=== PATIENT | female | born 1950 | race Caucasian/White ===

== ENCOUNTER 2016-10-29 08:00 | Outpatient (CLI) | payer MEDICARE | END 2016-10-29 23:59 | DX: E78.2 Mixed hyperlipidemia (principal); Z79.899 Other long term (current) drug therapy ==

== ENCOUNTER 2017-02-25 12:03 | Outpatient (CLI) | payer MEDICARE ==
--- NOTE | 2017-02-25 12:57 | XRAY Report ---
CHEST PA AND LATERAL: 02/25/2017 CLINICAL HISTORY: The patient had a recent fall injuring her right rib cage. FINDINGS: The bony thorax demonstrates mild anterior spurring in the thoracic spine. The ribs on pat ient's PA chest x-ray appear normal as do the clavicles. The heart and great vessels are normal. The mediastinum is not widened. The pulmonary parenchyma appe ars normal. IMPRESSION: NORMAL EXAMINATION. JOB #: [id number] EXT JOB #:[id number]
== END 2017-02-25 12:04 | disposition home or self-care (01) ==
LOC: DI 12:03
PROVIDERS: ATTEND Physician Assistant Medical
DX: R07.81 Pleurodynia (principal)
CPT/HCPCS: 71020

== ENCOUNTER 2017-06-03 15:30 | Outpatient (CLI) | payer MEDICARE ==
[2017-06-03 13:31] LABS: BASOPHILS # (AUTO) 0.1 10^3/uL (0.0-0.1); BASOPHILS % (AUTO) 0.9 %; EOSINOPHILS # (AUTO) 0.2 10^3/uL (0.0-0.7); HCT - HEMATOCRIT 38.1 % (37.0-47.0); HGB - HEMOGLOBIN 12.9 g/dL (12.0-16.0); LYMPHOCYTES # (AUTO) 1.7 10^3/uL (1.5-3.5); LYMPHOCYTES % (AUTO) 28.2 %; MEAN CORPUSCULAR HEMOGLOBIN 29.5 pg (27.0-31.0); MEAN CORPUSCULAR VOLUME 86.9 fL (81.0-99.0); MEAN PLATELET VOLUME 7.7 fL (7.9-10.8); MONOCYTES # (AUTO) 0.4 10^3/uL (0.0-1.0); MONOCYTES % (AUTO) 6.9 %; NEUTROPHILS # (AUTO) 3.6 10^3/uL (1.5-6.6); RED BLOOD COUNT 4.38 10^6/uL (4.20-5.40); RED CELL DISTRIBUTION WIDTH 13.9 % (12.0-15.0); UNCORRECTED WHITE BLOOD COUNT 5.9 x10^3/uL; WHITE BLOOD COUNT 5.9 x10^3/uL (4.8-10.8)
[2017-06-03 13:53] LABS: ALBUMIN/GLOBULIN RATIO 1.2 (1.0-2.2); BILIRUBIN,TOTAL 0.7 mg/dL (0.2-1.0); BUN - BLOOD UREA NITROGEN 12 mg/dL (6-20); CARBON DIOXIDE - CO2 27 mmol/L (21-32); CHLORIDE 97 mmol/L (101-111); CHOL/HDL RATIO 3.1 (<4.4); CHOLESTEROL 178 mg/dL; CREATININE 0.9 mg/dL (0.4-1.0); GFR - MDRD 62 (>89); GLUCOSE 91 mg/dL (70-100); HDL CHOLESTEROL 58 mg/dL; LDL/HDL RATIO 1.7 (<4.4); POTASSIUM 3.2 mmol/L (3.5-5.0); SODIUM 134 mmol/L (135-145); TOTAL PROTEIN 7.5 g/dL (6.7-8.2); TRIGLYCERIDES 100 mg/dL; VLDL CHOLESTEROL 20 mg/dL
== END 2017-06-03 15:31 | disposition home or self-care (01) ==
LOC: LAB.R 15:30
PROVIDERS: ATTEND Internal Medicine
DX: E78.5 Hyperlipidemia, unspecified (principal); Z79.899 Other long term (current) drug therapy; K21.9 Gastro-esophageal reflux disease without esophagitis; I10 Essential (primary) hypertension; E03.9 Hypothyroidism, unspecified
CPT/HCPCS: 80053; 80061; 84443; 85025

== ENCOUNTER 2017-08-25 11:43 | Outpatient (CLI) | payer MEDICARE ==
--- NOTE | 2017-08-25 13:32 | XRAY Report ---
EXAM; THREE VIEW RIGHT FOOT: 08/25/2017 CLINICAL INDICATION: Pain. FINDINGS: AP, lateral, and oblique views of the right foot demonstrate mild osteoarthritis of the interphalangeal joints and tarsometatarsal joints. Plantar calcaneal spurring is present, and there is calcification of the plantar fascia. There is no evidence of acute fracture. No radiopaque foreign body is seen in the soft tissues. IMPRESSION: DEGENERATIVE CHANGES. MD NAVID Ribeiro/PERLA TD: 08/25/2017 13:30 MTDD
== END 2017-08-25 11:44 | disposition home or self-care (01) ==
LOC: DI 11:43
PROVIDERS: ATTEND Physician Assistant Medical
DX: M79.671 Pain in right foot (principal); M19.071 Primary osteoarthritis, right ankle and foot; M77.31 Calcaneal spur, right foot; M25.871 Other specified joint disorders, right ankle and foot

== ENCOUNTER 2018-04-29 08:30 | Outpatient (CLI) | payer MEDICARE ==
[2018-04-29 13:36] LABS: BASOPHILS # (AUTO) 0.1 10^3/uL (0.0-0.1); BASOPHILS % (AUTO) 1.2 %; EOSINOPHILS # (AUTO) 0.3 10^3/uL (0.0-0.7); HGB - HEMOGLOBIN 13.6 g/dL (12.0-16.0); LYMPHOCYTES # (AUTO) 1.3 10^3/uL (1.5-3.5); LYMPHOCYTES % (AUTO) 25.3 %; MEAN CORPUSCULAR VOLUME 88.3 fL (81.0-99.0); MEAN PLATELET VOLUME 7.8 fL (7.9-10.8); MONOCYTES # (AUTO) 0.3 10^3/uL (0.0-1.0); MONOCYTES % (AUTO) 6.6 %; NEUTROPHILS # (AUTO) 3.2 10^3/uL (1.5-6.6); NEUTROPHILS % (AUTO) 60.9 %; PLT - PLATELET COUNT 387 10^3/uL (130-450); RED BLOOD COUNT 4.54 10^6/uL (4.20-5.40); RED CELL DISTRIBUTION WIDTH 13.5 % (12.0-15.0); WHITE BLOOD COUNT 5.2 x10^3/uL (4.8-10.8)
[2018-04-29 13:51] LABS: ALBUMIN 4.1 g/dL (3.2-5.5); ALBUMIN/GLOBULIN RATIO 1.2 (1.0-2.2); ALKALINE PHOSPHATASE 60 IU/L (42-121); ALT ALANINE AMINOTRANSFERASE 41 IU/L (10-60); AST ASPARTATE AMINOTRANSFERASE 32 IU/L (10-42); BILIRUBIN,TOTAL 1.1 mg/dL (0.2-1.0); BUN - BLOOD UREA NITROGEN 15 mg/dL (6-20); CALCIUM 9.3 mg/dL (8.5-10.3); CARBON DIOXIDE - CO2 27 mmol/L (21-32); CHLORIDE 99 mmol/L (101-111); CHOL/HDL RATIO 2.9 (<4.4); CHOLESTEROL 206 mg/dL; CREATININE 0.8 mg/dL (0.4-1.0); GFR - MDRD 71 (>89); GLUCOSE 96 mg/dL (70-100); HDL CHOLESTEROL 71 mg/dL; LDL CHOLESTEROL,CALCULATED 111 mg/dL; LDL/HDL RATIO 1.6 (<4.4); SODIUM 135 mmol/L (135-145); TOTAL PROTEIN 7.6 g/dL (6.7-8.2); VLDL CHOLESTEROL 24 mg/dL
[2018-04-29 13:59] LABS: CRP - C-REACTIVE PROTEIN < 1.0 mg/dL (0-1.0)
[2018-04-29 14:02] LABS: THYROID STIMULATING HORMONE 2.05 uIU/mL (0.34-5.60)
== END 2018-04-29 08:31 | disposition home or self-care (01) ==
LOC: LAB.R 08:30
PROVIDERS: ATTEND Internal Medicine
DX: R41.3 Other amnesia (principal); Z79.899 Other long term (current) drug therapy; E78.5 Hyperlipidemia, unspecified; I10 Essential (primary) hypertension; E03.9 Hypothyroidism, unspecified
CPT/HCPCS: 36415; 80053; 80061; 81599; 82607; 83721; 84443; 85025; 85651; 86140

== ENCOUNTER 2018-05-04 14:41 | Outpatient (CLI) | payer MEDICARE ==
--- NOTE | 2018-05-10 14:09 | MRI Report ---
Reason: MEMORY DEFICIT Procedure Date: 05/04/2018 Accession Number: [id number] / [id number] Procedure: MRI - Brain W/O CPT Code: FULL RESULT: EXAM: MRI BRAIN WITHOUT CONTRAST EXAM DATE: 05/04/2018 03:24 PM. CLINICAL HISTORY: 68-year-old female. MEMORY DEFICIT. COMPARISON: None. TECHNIQUE: Multiplanar, multisequence T1-weighted and fluid-sensitive MR sequences of the brain were performed. Sequences optimized for routine evaluation. Other: None. IV Contrast: None. FINDINGS: Brain Volume: Normal for age. Parenchyma/Dura: No mass, acute infarct or hemorrhage. Scattered T2/FLAIR hyperintense periventricular, deep, and subcortical white matter lesions within cerebral hemispheres bilaterally. No parenchymal foci of susceptibility artifact. Chronic lacunar infarcts right centrum semiovale ovale, midbrain. Ventricles/Cisterns: No hydrocephalus. No abnormal extra-axial fluid collection or hemorrhage. Orbits: Symmetric and unremarkable. Sella Turcica: The pituitary gland, cavernous sinuses, suprasellar cistern and optic chiasm are unremarkable. IAC: Symmetric and unremarkable. Vasculature: Normal signal flow void is seen in the major arterial structures at the skull base. Sinuses: No acute appearing sinus disease. Bones: No focal pathologic appearing marrow signal changes. Other: None. IMPRESSION: 1. No MRI evidence of acute intracranial abnormality. Specifically, no evidence of acute or subacute infarct, acute intracranial hemorrhage, mass, midline shift, or hydrocephalus. 2. Qualitatively normal brain volume for age. 3. Scattered T2/FLAIR hyperintense periventricular, deep, and subcortical white matter lesions within cerebral hemispheres bilaterally. While nonspecific, these are favored to represent sequela of chronic microangiopathy. 4. Chronic lacunar infarcts right centrum semiovale ovale, midbrain. RADIA
== END 2018-05-04 14:42 | disposition home or self-care (01) ==
LOC: DI 14:41
PROVIDERS: ATTEND Internal Medicine
DX: R41.3 Other amnesia (principal); G93.9 Disorder of brain, unspecified; Z86.73 Personal history of transient ischemic attack (TIA), and cerebral infarction without residual deficits
CPT/HCPCS: 70551

== ENCOUNTER 2018-05-10 14:30 | Outpatient (CLI) | payer MEDICARE ==
--- NOTE | 2018-05-10 16:49 | XRAY Report ---
Reason: HIP LEFT LOW BACK PAIN Procedure Date: 05/10/2018 Accession Number: [id number] / [id number] Procedure: XR - Hip w/Pelvis 2-3V LT CPT Code: FULL RESULT: EXAM: LEFT HIP AND PELVIS RADIOGRAPHY EXAM DATE: 05/10/2018 02:59 PM. HISTORY: HIP LEFT LOW BACK PAIN. COMPARISONS: None. TECHNIQUE: 1 view of the pelvis and 1 view of the left hip. FINDINGS: Bones: No fracture or bone lesion. Joints: The bilateral hip, pubis symphysis, and sacroiliac joints are anatomically aligned. Slight degenerative change of the sacroiliac joints right greater than left. Hip joints appear well-maintained. Soft Tissues: Unremarkable IMPRESSION: No acute findings pelvis and left hip radiography. Minor degenerative changes are present. RADIA
--- NOTE | 2018-05-10 19:38 | XRAY Report ---
Reason: Low back pain Procedure Date: 05/10/2018 Accession Number: [id number] / [id number] Procedure: XR - Lumbar Spine 2 View CPT Code: FULL RESULT: EXAM: LUMBOSACRAL SPINE RADIOGRAPHY EXAM DATE: 05/10/2018 02:59 PM. CLINICAL HISTORY: Low back pain. COMPARISONS: None. TECHNIQUE: 3 standing views. FINDINGS: Alignment: Grade 1 anterior listhesis L4 on L5 and L5 on S1 Bones: Mild height loss of L1. Disks: Advanced disk space narrowing T12-L1, L1-L2 and L5-S1 with lesser narrowing L2-L3, L3-L4 and L4-L5. Facets: Multilevel degenerative changes. Sacroiliac Joints: Unremarkable. Soft Tissues: Surgical clips right upper quadrant IMPRESSION: Multilevel degenerative change lumbar spine. Lumbar spinal stenosis is likely present but could be best assessed by MRI. RADIA
== END 2018-05-10 14:31 | disposition home or self-care (01) ==
LOC: DI 14:30
PROVIDERS: ATTEND Internal Medicine
DX: M47.898 Other spondylosis, sacral and sacrococcygeal region (principal); M51.36 Other intervertebral disc degeneration, lumbar region; M47.896 Other spondylosis, lumbar region
CPT/HCPCS: 72100

== ENCOUNTER 2019-04-04 14:32 | Outpatient (CLI) | payer MEDICARE ==
[2019-04-04 15:12] LABS: VALPROIC ACID (DEPAKOTE) 37.4 ug/mL
== END 2019-04-04 14:33 | disposition home or self-care (01) ==
LOC: LAB 14:32
PROVIDERS: ATTEND Psychiatry & Neurology Psychiatry
DX: F31.63 Bipolar disorder, current episode mixed, severe, without psychotic features (principal)
CPT/HCPCS: 36415; 80164

== ENCOUNTER 2019-04-24 13:39 | Outpatient (CLI) | payer MEDICARE ==
[2019-04-24 14:29] LABS: VALPROIC ACID (DEPAKOTE) 57.3 ug/mL
== END 2019-04-24 13:40 | disposition home or self-care (01) ==
LOC: LAB 13:39
PROVIDERS: ATTEND Psychiatry & Neurology Psychiatry
DX: F31.63 Bipolar disorder, current episode mixed, severe, without psychotic features (principal)
CPT/HCPCS: 36415; 80164

== ENCOUNTER 2019-05-01 11:08 | Outpatient (CLI) | payer MEDICARE ==
[2019-05-01 11:51] LABS: VALPROIC ACID (DEPAKOTE) 92.3 ug/mL
== END 2019-05-01 11:09 | disposition home or self-care (01) ==
LOC: LAB 11:08
PROVIDERS: ATTEND Psychiatry & Neurology Psychiatry
DX: F31.9 Bipolar disorder, unspecified (principal); Z79.899 Other long term (current) drug therapy
CPT/HCPCS: 36415; 80164

== ENCOUNTER 2019-05-18 13:03 | Outpatient (CLI) | payer MEDICARE ==
[2019-05-18 13:33] LABS: VALPROIC ACID (DEPAKOTE) 77.4 ug/mL
== END 2019-05-18 13:04 | disposition home or self-care (01) ==
LOC: LAB 13:03
PROVIDERS: ATTEND Psychiatry & Neurology Psychiatry
DX: F31.63 Bipolar disorder, current episode mixed, severe, without psychotic features (principal)
CPT/HCPCS: 36415; 80164

== ENCOUNTER 2019-05-21 11:39 | Observation (INO) | payer MEDICARE ==
[2019-05-21 12:48] LABS: BASOPHILS % (AUTO) 0.2 %; EOSINOPHILS # (AUTO) 0.1 10^3/uL (0.0-0.7); EOSINOPHILS % (AUTO) 0.9 %; HGB - HEMOGLOBIN 13.5 g/dL (12.0-16.0); LYMPHOCYTES # (AUTO) 0.7 10^3/uL (1.5-3.5); LYMPHOCYTES % (AUTO) 6.2 %; MEAN CORPUSCULAR HGB CONC 36.2 g/dL (32.0-36.0); MEAN CORPUSCULAR VOLUME 85.7 fL (81.0-99.0); MEAN PLATELET VOLUME 9.4 fL (7.9-10.8); MONOCYTES # (AUTO) 1.3 10^3/uL (0.0-1.0); NEUTROPHILS # (AUTO) 9.6 10^3/uL (1.5-6.6); NEUTROPHILS % (AUTO) 81.3 %; PLT - PLATELET COUNT 157 10^3/uL (130-450); RED BLOOD COUNT 4.35 10^6/uL (4.20-5.40); RED CELL DISTRIBUTION WIDTH 12.4 % (12.0-15.0); WHITE BLOOD COUNT 11.9 x10^3/uL (4.8-10.8)
--- NOTE | 2019-05-21 12:53 | ED Physician Documentation ---
History of Present Illness - Stated complaint Stated Complaint: WEAKNESS/MED CHGS - Chief complaint Chief Complaint: Neuro - History obtained from History obtained from: Patient - History of Present Illness Pain level max: 0 Pain level now: 0 - Additonal information Additional information: 69-year-old female presents to the emergency department stating she has felt dizzy and "foggy" for the past year or so. She states that today her sister came over and told her that "she looked terrible". Therefore she came to the emergency department. Has no numbness or tingling. No headache. No speech difficulties. She does state that her Depakote was recently changed. She does not know her other medications. She denies any trauma. Denies any other complaints. No nausea or vomiting. No abdominal pain. No diarrhea. Review of Systems Unable to obtain: AMS Constitutional: denies: Fever, Chills Respiratory: denies: Cough GI: denies: Nausea, Vomiting, Diarrhea Skin: denies: Rash Musculoskeletal: denies: Neck pain, Back pain Neurologic: denies: Focal weakness, Numbness, Difficulty speaking, Headache PD PAST MEDICAL HISTORY - Past Medical History Past Medical History: Yes Cardiovascular: Hypertension, High cholesterol - Present Medications Home Medications: Ambulatory Orders Medication Instructions Recorded Confirmed Amlodipine Besylate [Norvasc] 2.5 mg PO QPM 05/21/19 05/21/19 Divalproex Sodium [Divalproex 1,000 mg PO QPM 05/21/19 05/21/19 Sodium ER] Divalproex Sodium [Divalproex 500 mg PO DAILY 05/21/19 05/21/19 Sodium ER] Esomeprazole Magnesium [Nexium 20 mg PO QDAC 05/21/19 05/21/19 24Hr] Levothyroxine [Synthroid] 112 mcg PO QDAC 05/21/19 05/21/19 Lisinopril/Hydrochlorothiazide 1 tab PO DAILY 05/21/19 05/21/19 [Lisinopril-Hctz 20-12.5 mg Tab] Lovastatin 40 mg PO QPM 05/21/19 05/21/19 Multivitamin [Theragran] 1 tab PO QPM 05/21/19 05/21/19 Naproxen Sodium 220 mg PO QPM PRN 05/21/19 05/21/19 Potassium Chloride 20 meq PO QPM 05/21/19 05/21/19 diphenhydrAMINE HCl 25 mg PO BID PRN 05/21/19 05/21/19 [Diphenhydramine HCl] - Allergies Allergies/Adverse Reactions: Allergies Allergy/AdvReac Type Severity Reaction Status Date / Time No Known Drug Allergies Allergy Verified 05/21/19 11:52 - Living Situation Living Situation: reports: Alone Living Arrangement: reports: At home - Social History Does the pt have substance abuse?: No - Family History Family history: reports: Non contributory PD ED PE NORMAL - Vitals Vital signs reviewed: Yes - General General: No acute distress, Well developed/nourished, Other (alert, slow to respond. forgets questions when asked.) - HEENT HEENT: Atraumatic, PERRL, Moist mucous membranes, Pharynx benign - Neck Neck: Supple, no meningeal sign - Cardiac Cardiac: RRR, Strong equal pulses - Respiratory Respiratory: No respiratory distress, Clear bilaterally - Abdomen Abdomen: Soft, Non tender, Non distended - Back Back: No spinal TTP - Derm Derm: Warm and dry, No rash - Extremities Extremities: No edema - Neuro Neuro: Other (alert, pleasant) - Psych Psych: Normal mood, Normal affect Results - Vitals Vitals: Vital Signs - 24 hr 05/21/19 05/21/19 05/21/19 11:47 12:02 12:25 Temperature 36.5 C 36.7 C Heart Rate 76 69 64 Respiratory 18 16 16 Rate Blood Pressure 105/62 118/73 105/65 O2 Saturation 98 96 94 05/21/19 05/21/19 13:05 13:08 Temperature Heart Rate 68 61 Respiratory 16 14 Rate Blood Pressure 102/66 110/62 O2 Saturation 96 96 Oxygen O2 Source Room air - Labs Labs: Laboratory Tests 05/21/19 05/21/19 05/21/19 12:33 12:33 12:33 WBC 11.9 H RBC 4.35 Hgb 13.5 Hct 37.3 MCV 85.7 MCH 31.0 MCHC 36.2 H RDW 12.4 Plt Count 157 MPV 9.4 Neut # (Auto) 9.6 H Lymph # (Auto) 0.7 L Dunn # (Auto) 1.3 H Eos # (Auto) 0.1 Baso # (Auto) 0.0 Absolute Nucleated RBC 0.00 Nucleated RBC % 0.0 Sodium 121 L Potassium 3.6 Chloride 83 L Carbon Dioxide 28 Anion Gap 10.0 BUN 17 Creatinine 0.9 Estimated GFR (MDRD) 62 L Glucose 98 Calcium 8.6 Total Bilirubin 0.7 AST 99 H ALT 154 H Alkaline Phosphatase 42 Total Protein 6.1 L Albumin 3.3 Globulin 2.8 Albumin/Globulin Ratio 1.2 Lipase 24 TSH Last Dose Date 05/20/19 Last Dose Time 1800 Salicylates Acetaminophen Valproic Acid 123.0 Ethyl Alcohol 05/21/19 05/21/19 12:33 12:33 WBC RBC Hgb Hct MCV MCH MCHC RDW Plt Count MPV Neut # (Auto) Lymph # (Auto) Dunn # (Auto) Eos # (Auto) Baso # (Auto) Absolute Nucleated RBC Nucleated RBC % Sodium Potassium Chloride Carbon Dioxide Anion Gap BUN Creatinine Estimated GFR (MDRD) Glucose Calcium Total Bilirubin AST ALT Alkaline Phosphatase Total Protein Albumin Globulin Albumin/Globulin Ratio Lipase TSH 1.00 Last Dose Date Last Dose Time Salicylates < 6.0 Acetaminophen < 10 L Valproic Acid Ethyl Alcohol < 5.0 - Rads (name of study) head CT Radiology: Prelim report reviewed, EMP read contemporaneously, See rad report (Negative for an acute or focal intracranial abnormality. ) PD MEDICAL DECISION MAKING - ED course Complexity details: reviewed results, re-evaluated patient, considered differential, d/w patient, d/w family, d/w senior erp consultant ED course: 69-year-old female presents to the emergency department with altered mental status. Unclear how long this is been going on. Family states that she could not even feed herself today. Her sodium is found to be significantly lower than her usual baseline. Her usual is around 1 34-1 35. Will start on normal saline slowly to gradually correct her hyponatremia. When the saline was initiated, she did begin to improve. No acute findings on head CT. Discussed the case with Dr. Mclaughlin, hospitalist who accepts This document was made in part using voice recognition software. While efforts are made to proofread this document, sound alike and grammatical errors may occ ur. Departure - Departure Disposition: ED Place in Observation Clinical Impression: Hyponatremia Altered mental status Qualifiers: Altered mental status type: unspecified Qualified Code(s): R41.82 - Altered mental status, unspecified Condition: Stable Discharge Date/Time: 05/21/19 15:10
[2019-05-21 13:03] LABS: ALBUMIN 3.3 g/dL (3.2-5.5); ALBUMIN/GLOBULIN RATIO 1.2 (1.0-2.2); BILIRUBIN,TOTAL 0.7 mg/dL (0.2-1.0); CALCIUM 8.6 mg/dL (8.5-10.3); CREATININE 0.9 mg/dL (0.4-1.0); TOTAL PROTEIN 6.1 g/dL (6.7-8.2)
[2019-05-21] MEDS ORDERED: SODIUM CHLORIDE 0.9% 1,000 ML IV ONE (13:18)
[2019-05-21 13:52] LABS: ACETAMINOPHEN < 10 ug/mL (10-30); SALICYLATE < 6.0 mg/dL
[2019-05-21] MEDS ORDERED: SODIUM CHLORIDE FLUSH 0.9% 10 ML SYRINGE IVP PRN (14:26)
[2019-05-21] MEDS ORDERED: ONDANSETRON 4 MG/2 ML VIAL IVP PRN (14:26)
[2019-05-21] MEDS ORDERED: ACETAMINOPHEN 325 MG TABLET PO PRN (14:26)
--- NOTE | 2019-05-21 14:29 | CT Report ---
Reason: aloc Procedure Date: 05/21/2019 Accession Number: [id number] / [id number] Procedure: CT - HEAD WO CPT Code: FULL RESULT: EXAM: CT HEAD EXAM DATE: 05/21/2019 01:53 PM. CLINICAL HISTORY: Altered level of consciousness. COMPARISON: BRAIN W/O 05/04/2018 2:57 PM. TECHNIQUE: Multiaxial CT images were obtained from the foramen magnum to the vertex. Reformats: Sagittal and coronal. IV contrast: None. In accordance with CT protocol optimization, one or more of the following dose reduction techniques were utilized for this exam: automated exposure control, adjustment of mA and/or KV based on patient size, or use of iterative reconstructive technique. FINDINGS: Parenchyma: No intraparenchymal hemorrhage. No evidence of mass, midline shift, or CT findings of infarction. Huerta-white differentiation is distinct. Extraaxial Spaces: Normal for age. No subdural or epidural collections identified. Ventricles: Normal in size and position. Sinuses and Orbits: Imaged paranasal sinuses, orbits, and mastoids show no significant abnormality. Bones: No evidence of fracture or calvarial defect. Other: None. IMPRESSION: Negative for an acute or focal intracranial abnormality. RADIA
--- NOTE | 2019-05-21 14:58 | HISTORY & PHYSICAL EXAMINATION ---
Chief Complaint - Chief Complaint Chief Complaint: dizziness and confused History of Present Illness - History of Present Illness HPI Comment/Other: Ms. Allen is a 69-year-old female with a PMH significant for mood disorder, bipolar, HTN, HLD, GERD, hypothyroidism who presents to the emergency department complain of dizziness, lightheaded, and some confused. Pt can only provide limited information, and her family provide some her history. Pt report her PCP changed her Depakote dosage on this week . Since that, she felt more dizziness. Pt's family report pt took Depakote for her psychological disorder such as bipolar and mood disorder. Family reports decreased energy, appetite and intermittent confusion for the past 1-2 weeks. pt denies headache, vision change, chest pain, fever, chill, shortness of breath, abdominal pain, nausea, vomiting, diarrhea, dysuria, hematuria. Pt also denies focal neurological deficiency. CT of head is unremarkable. UA analysis is pending now. Lab test reveals significant low sodium at 121, slight elevated liver enzyme AST and ALT, and slight elevated WBC 11.9. pt is admitted in observation unit for further evaluation and treatment. History - Family & Social History Family History: Mother: CVA/TIA, Father: CAD Family History Comment/Other: pt's family report pt's father from CAD and her mother from CVA. pt is living at [facility]. Social History Notes: pt's family report pt has never been cigarette smoking, alcoholic or drug issue. - POLST POLST Status: DNR Meds/Allgy - Home Medications Home Medications: Ambulatory Orders Medication Instructions Recorded Confirmed Amlodipine Besylate [Norvasc] 2.5 mg PO QPM 05/21/19 05/21/19 Divalproex Sodium [Divalproex 1,000 mg PO QPM 05/21/19 05/21/19 Sodium ER] Divalproex Sodium [Divalproex 500 mg PO DAILY 05/21/19 05/21/19 Sodium ER] Esomeprazole Magnesium [Nexium 20 mg PO QDAC 05/21/19 05/21/19 24Hr] Levothyroxine [Synthroid] 112 mcg PO QDAC 05/21/19 05/21/19 Lisinopril/Hydrochlorothiazide 1 tab PO DAILY 05/21/19 05/21/19 [Lisinopril-Hctz 20-12.5 mg Tab] Lovastatin 40 mg PO QPM 05/21/19 05/21/19 Multivitamin [Theragran] 1 tab PO QPM 05/21/19 05/21/19 Naproxen Sodium 220 mg PO QPM PRN 05/21/19 05/21/19 Potassium Chloride 20 meq PO QPM 05/21/19 05/21/19 diphenhydrAMINE HCl 25 mg PO BID PRN 05/21/19 05/21/19 [Diphenhydramine HCl] - Allergies Allergies/Adverse Reactions: Allergies Allergy/AdvReac Type Severity Reaction Status Date / Time No Known Drug Allergies Allergy Verified 05/21/19 11:52 Review of Systems - Constitutional Constitutional: reports: Fatigue, Poor appetite. denies: Fever, Chills, Malaise, Weakness, Diaphoresis, Night sweats - Eyes Eyes: denies: Pain, Irritation, Amaurosis, Blurred vision, Spots in vision, Field loss, Vision loss, Dipolpia - Ears, Nose & Throat Ears, Nose & Throat: denies: Ear pain, Hearing loss, Hearing aids, Tinnitus, Vertigo, Nasal pain, Nasal discharge, Nosebleeds, Nasal obstruction, Nasal congestion, Postnasal drainage, Dentures, Sore throat, Hoarseness, Mouth lesions, Bleeding gums - Cardiovascular Cariovascular: reports: Lightheadedness. denies: Irregular heart rate, Palpitations, Chest pain, Edema, Syncope, Exertional dyspnea, Decr. exercise tolerance - Respiratory Respiratory: denies: Cough, Sputum production, Wheezing, Snoring, Hemoptysis, Orthopnea, SOB at rest, SOB with exertion - Gastrointestinal Gastrointestinal: denies: Abdominal pain, Abdominal distention, Constipation, Diarrhea, Change in bowel habits, Rectal bleeding, Black stools, Bloody stools, Nausea, Vomiting, Bile emesis, Ede blood emesis, Coffee grounds emesis - Genitourinary Genitourinary: denies: Dysuria, Frequency, Urgency, Hematuria, Incontinence, Fl ank pain, Nocturia, Urethral discharge - Musculoskeletal Musculoskeletal: denies: Muscle pain, Back pain, Muscle aches, Muscle weakness, Gout, Joint pain - Integumentary Integumentary: denies: Rash, Pruritis, Lesions, Dryness, Lumps, Acne, Pigment changes, Nail changes - Neurological Neurological: denies: General weakness, Focal weakness, Headache, Dizziness, Numbness, Memory problems, Pre-existing deficit, Abnormal gait, Seizures, Incoordination, Slurred speech - Psychiatric Psychiatric: denies: Depression, Anxiety, Suicidal, Delusions, Hallucinations, Homicidal - Endocrine Endocrine: denies: Polyuria, Polydypsia, Polyphagia, Intolerance to cold - Hematologic/Lymphatic Hematologic/Lymphatic: denies: Anemia, Bruising, Petechiae, Blood clots, Lymphadenopathy, Bleeding tendencies Exam - Vital Signs Vital Signs: Vital Signs x48h Temp Pulse Resp BP Pulse Ox 05/21/19 13:08 61 14 110/62 96 05/21/19 12:25 64 16 105/65 94 05/21/19 12:02 36.7 C 69 16 118/73 96 05/21/19 11:47 36.5 C 76 18 105/62 98 - Physical Exam General Appearance: positive: No acute distress, Alert. negative: Lethargic Eyes Bilateral: positive: Normal inspection, PERRL, No lid inflammation, Conjunctivae nml ENT: positive: ENT inspection nml, Pharynx nml, No signs of dehydration. negative: Purulent nasal drainage, Pharyngeal erythema, Oral lesions Neck: positive: Nml inspection, Thyroid nml, No JVD, Trachea midline. negative: Thyromegaly, Lymphadenopathy (R), Lymphadenopathy (L), Stiff neck, Swelling/bruising, Tracheal deviation Respiratory: positive: Chest non-tender, No respiratory distress, Breath sounds nml. negative: Wheezes, Rales, Rhonchi Cardiovascular: positive: Regular rate & rhythm, No murmur, No gallop. negative: Irregularly irregular, Extrasystoles, Tachycardia, Bradycardia, JVD present, Systolic murmur, Diastolic murmur Peripheral Pulses: positive: 2+ Abdomen: positive: Non-tender, No organomegaly, Nml bowel sounds, No distention. negative: Tenderness, Guarding, Rebound Back: positive: Nml inspection. negative: CVA tenderness (R), CVA tenderness (L) Skin: positive: Color nml, No rash, Warm, Dry. negative: Cyanosis, Diaphoresis, Pallor Extremities: positive: Non-tender, Full ROM, Nml appearance. negative: Calf tenderness, Joint swelling, Patrick's sign/cords Neurologic/Psychiatric: positive: Sensation nml. negative: Weakness, Sensory loss, Facial droop, Slurred/abnml speech, Depressed mood/affect Sepsis Event Note (H) - Evaluation Current Stage of Sepsis: Ruled out Conclusion/Plan - Problem List (1) Altered mental status Conclusion/Plan: pt present confused. CT of head is unremarkable. pt has hx of mood disorder, and bipolar, she took Depakote. Depakote serum concentration is slight above therapeutic dosage. but pt also present hyponatremia with Na at 121. UA analysis is pending and with slight elevated WBC. pt also present slight elevated liver enzyme. The etiology is unclear, differentiate could be hyponatremia, pt maybe has UTI, UA is pending, or overdosage of Depakote. neuro check correct underline of hyponatremia UA is pending, WBC is slightly elevated, followup hold today Depakote, start on tomorrow, I will call pt's psychiatrist for management of pt's mood disorder with Depakote. Depakote dosage may need to be decrease. tele and vital monitor Qualifiers: Altered mental status type: unspecified Qualified Code(s): R41.82 - Altered mental status, unspecified (2) Hyponatremia Conclusion/Plan: it seems likely from hypovolume hyponatremia correct with IVF of NS lab monitor pt and vital monitor (3) HTN (hypertension) Conclusion/Plan: pt took Norvasc and Lisinopril with HCTZ . pt's HCTZ will be hold as home meds, because of hyponatremia. vital monitor, pt's HTN is stable, will reconcile (4) HLD (hyperlipidemia) Conclusion/Plan: pt has home meds Lipitor 40 mg daily. pt has slight elevated liver enzyme. will check lipid panel. hold Lipitor now. (5) Bipolar 1 disorder Conclusion/Plan: pt took Depakote for mood control. Lab test today reveals Depakote is slight above therapeutic dosage. hold Depakote today. will call pt's psychiatrist for further management. the dosage of Depakote may needed to be adjusted. (6) Hypothyroidism Conclusion/Plan: TSH is normal, continue home levothyroyxine (7) GERD (gastroesophageal reflux disease) Conclusion/Plan: stable, no complaint. Pepcid is for pt now (8) Elevated liver enzymes Conclusion/Plan: ALT and AST is slight elevated. hold Lipitor now. overdose of Depakote can cause elevated liver enzyme. Hold Depakote now. daily lab monitor check Ammonia level since pt also has some confused (9) Do not intubate, cardiopulmonary resuscitation (CPR)-only code status Conclusion/Plan: pt's family state pt is DNR status - Lab Results Fish Bones: 05/21/19 12:33 05/21/19 12:33 Core Measures - Anticipated LOS I expect patient to be DC'd or transferred within 96 hours.: Yes - DVT/VTE - Prophylaxis VTE/DVT Device ordered at admit?: Yes VTE/DVT Prophylaxis med ordered at admit?: Yes
[2019-05-21] MEDS: SODIUM CHLORIDE 0.9% 1,000 ML IV SCH (17:00)
[2019-05-21] MEDS: SODIUM CHLORIDE FLUSH 0.9% 10 ML SYRINGE IVP SCH (17:00)
[2019-05-21 18:51] LABS: MUDS CUTOFF CONCENTRATIONS CUTOFF CONC BELOW:
[2019-05-21 18:54] LABS: BILIRUBIN,URINE NEGATIVE (NEGATIVE); GLUCOSE, URINE (UA) NEGATIVE (NEGATIVE); KETONES,URINE (UA) NEGATIVE (NEGATIVE); LEUKOCYTE ESTERASE, URINE MODERATE (NEGATIVE); NITRITE,URINE NEGATIVE (NEGATIVE); OCCULT BLOOD,URINE TRACE-INTA (NEGATIVE); PROTEIN,URINE NEGATIVE (NEGATIVE); UROBILINOGEN,URINE 2 E.U./dL (NORMAL)
[2019-05-21 19:00] LABS: CLARITY,URINE CLEAR (CLEAR)
[2019-05-21 19:07] LABS: RBC,URINE 0-5 /HPF (0-5)
[2019-05-21 19:08] LABS: BACTERIA,URINE Few /HPF (None Seen); EPITHELIAL CELLS,UR FEW Transitional /HPF (<= Few); SQUAMOUS EPITHELIAL CELL,UR MANY Squamous (<= Few)
[2019-05-21 19:11] LABS: AMPHETAMINE SCREEN,URINE NEGATIVE (NEGATIVE); BENZODIAZEPINES SCREEN, URINE POSITIVE (NEGATIVE); COCAINE SCREEN URINE NEGATIVE (NEGATIVE); METHADONE SCREEN, URINE NEGATIVE (NEGATIVE); METHAMPHETAMINES SCREEN, URINE NEGATIVE (NEGATIVE); OPIATE SCREEN, URINE NEGATIVE (NEGATIVE); OXYCODONE SCREEN, URINE NEGATIVE (NEGATIVE); PROPOXYPHENE SCREEN, URINE NEGATIVE (NEGATIVE); TRICYCLIC ANTIDEPRESSANT,URINE NEGATIVE (NEGATIVE)
[2019-05-21 19:54] LABS: CREATININE 0.9 mg/dL (0.4-1.0)
[2019-05-21] MEDS: FAMOTIDINE 20 MG TABLET PO SCH (20:30)
[2019-05-21] MEDS ORDERED: POTASSIUM CHLORIDE 20 MEQ TABLET PO ONE (20:43)
[2019-05-21] MEDS: MAGNESIUM OXIDE 400 MG TABLET PO SCH (22:44)
[2019-05-21] MEDS: LACTULOSE 10 GM /15 ML UDC PO SCH (23:06)
[2019-05-22] MEDS: SODIUM CHLORIDE 0.9% 1,000 ML IV SCH (03:12)
[2019-05-22] MEDS: SODIUM CHLORIDE FLUSH 0.9% 10 ML SYRINGE IVP SCH ×2 (03:24→09:52)
[2019-05-22 04:52] LABS: BASOPHILS % (AUTO) 0.3 %; EOSINOPHILS # (AUTO) 0.3 10^3/uL (0.0-0.7); EOSINOPHILS % (AUTO) 3.7 %; HGB - HEMOGLOBIN 12.7 g/dL (12.0-16.0); LYMPHOCYTES # (AUTO) 1.7 10^3/uL (1.5-3.5); LYMPHOCYTES % (AUTO) 25.4 %; MEAN CORPUSCULAR HEMOGLOBIN 31.2 pg (27.0-31.0); MEAN CORPUSCULAR HGB CONC 36.1 g/dL (32.0-36.0); MEAN CORPUSCULAR VOLUME 86.5 fL (81.0-99.0); MEAN PLATELET VOLUME 9.5 fL (7.9-10.8); MONOCYTES # (AUTO) 0.7 10^3/uL (0.0-1.0); MONOCYTES % (AUTO) 10.5 %; NEUTROPHILS % (AUTO) 59.8 %; PLT - PLATELET COUNT 156 10^3/uL (130-450); RED BLOOD COUNT 4.07 10^6/uL (4.20-5.40); RED CELL DISTRIBUTION WIDTH 12.6 % (12.0-15.0); WHITE BLOOD COUNT 6.7 x10^3/uL (4.8-10.8)
[2019-05-22 05:01] LABS: ALBUMIN/GLOBULIN RATIO 1.2 (1.0-2.2); BILIRUBIN,TOTAL 0.7 mg/dL (0.2-1.0); CALCIUM 8.2 mg/dL (8.5-10.3); CREATININE 0.7 mg/dL (0.4-1.0); MAGNESIUM 1.7 mg/dL (1.7-2.8); TOTAL PROTEIN 5.6 g/dL (6.7-8.2)
[2019-05-22 05:07] LABS: CHOL/HDL RATIO 2.4 (<4.4); CHOLESTEROL 134 mg/dL; HDL CHOLESTEROL 57 mg/dL; LDL CHOLESTEROL,CALCULATED 60 mg/dL; LDL/HDL RATIO 1.1 (<4.4); VLDL CHOLESTEROL 17 mg/dL
[2019-05-22] MEDS: LACTULOSE 10 GM /15 ML UDC PO SCH ×2 (06:20→13:15)
[2019-05-22] MEDS ORDERED: LEVOTHYROXINE 112 MCG TABLET PO SCH (07:00)
--- NOTE | 2019-05-22 07:25 | Ultrasound Report ---
Reason: elevated liver enzyme Procedure Date: 05/22/2019 Accession Number: [id number] / [id number] Procedure: US - Abdomen Limited CPT Code: FULL RESULT: EXAM: ABDOMEN ULTRASOUND LIMITED, RUQ EXAM DATE: 05/22/2019 07:03 AM. CLINICAL HISTORY: Elevated liver enzyme. COMPARISON: None. TECHNIQUE: Real-time scanning was performed with static images obtained. FINDINGS: Liver: Mildly coarse echotexture in increased echogenicity. Right lobe 12.4 cm. Small calcifications in the right lobe compatible with granulomata. No suspicious focal lesion. Smooth capsule. Main portal vein flow: Hepatopetal. Gallbladder: Surgically absent. Biliary System: CBD measures 4.6 mm. No intrahepatic or extrahepatic ductal dilatation. Pancreas: Not well seen due to body habitus and bowel gas. Right kidney: 9.6 in length without hydronephrosis. Other: No RUQ free fluid. IMPRESSION: 1. Consistent with mild hepatic steatosis. No obviously suspicious liver lesion or nodular capsule to indicate kalli cirrhosis. 2. Presumed calcified granulomata right hepatic lobe. 3. No dilated bile duct status post cholecystectomy. RADIA
[2019-05-22] MEDS ORDERED: ENOXAPARIN 40 MG/0.4 ML SYRINGE SUBQ SCH (09:00)
[2019-05-22] MEDS ORDERED: DIVALPROEX ER 250 MG TABLET PO SCH ×3 (09:00→21:00)
[2019-05-22] MEDS ORDERED: LISINOPRIL 20 MG TABLET PO SCH (09:00)
[2019-05-22] MEDS ORDERED: POLYETHYLENE GLYCOL 3350 17 GM PACKET PO SCH (09:00)
[2019-05-22] MEDS: MAGNESIUM OXIDE 400 MG TABLET PO SCH (09:50)
[2019-05-22] MEDS: FAMOTIDINE 20 MG TABLET PO SCH (09:50)
[2019-05-22] MEDS ORDERED: SODIUM CHLORIDE 0.9% 1,000 ML IV SCH (13:00)
--- NOTE | 2019-05-22 14:43 | Discharge Plan ---
Discharge Plan Problem Reviewed?: Yes Disposition: Home, Self Care Condition: Poor Prescriptions: Divalproex Sodium [Divalproex Sodium ER] 500 mg PO QPM #10 tab.er.24h Lisinopril 20 mg PO DAILY #10 tablet Lovastatin 20 mg PO QPM #10 tablet Diet: Regular Activity Restrictions: Activity as Tolerated Shower Restrictions: No (fall precaution) Instruction Topics: Hyponatremia Dc, Lisinopril tablets, Hydrochlorothiazide HCTZ capsules or tablets, Lovastatin tablets Health Concerns: hyponatremia, elevated liver enzyme, over therapeutic range of depakote Plan of Treatment: After treatment in the hospital, you have clear mind, you are alert and oriented plus three. your HCTZ is hold for hyponatremia. Depakote dosage is reduced to bid of 500mg because of over therapeutic range, possible contribute to your dizziness and mild elevated liver enzyme. Your Lovastatin dosage is reduced as well, because your lipid panel test is normal, but you have mild elevated liver enzyme, your US of your liver is unremarkable. Care Goals: stabilization and improvement of your medical conditions Assessment: assessment as the above Additional Instructions or Follow Up instructions: you may followup your PCP in one week, followup Dr. John Flor office on tomorrow. Should your symptoms return or worsen, you may present ER or call 911 for help No Smoking: If you smoke, Please STOP! Call for help.
--- NOTE | 2019-05-22 15:26 | DISCHARGE SUMMARY ---
Discharge Summary Discharge Date: 05/22/19 Discharging Provider: LOONEY Condition at Discharge: Poor Discharge Disposition: Home, Self Care Discharge Facility Name: home - DIAGNOSES Admission Diagnoses: (1) Altered mental status (2) Hyponatremia (3) HTN (hypertension) (4) HLD (hyperlipidemia) (5) Bipolar 1 disorder (6) Hypothyroidism (7) GERD (gastroesophageal reflux disease) (8) Elevated liver enzymes Discharge Diagnoses with Status of Each Condition: (1) Altered mental status resolved. pt is alert and oriented plus 3 today (2) Hyponatremia great improved. Na 131 today, your HCTZ is hold (3) HTN (hypertension) stable (4) HLD (hyperlipidemia) stable (5) Bipolar 1 disorder stable (6) Hypothyroidism stable (7) GERD (gastroesophageal reflux disease) stable (8) Elevated liver enzymes improved. reduced Lovastatin and Depakote. US of liver is unremarkable. - HPI History of Present Illness: Ms. Allen is a 69-year-old female with a PMH significant for mood disorder, bipolar, HTN, HLD, GERD, hypothyroidism who presents to the emergency department complain of dizziness, lightheaded, and some confused. Pt can only provide lynn hermosillo information, and her family provide some her history. Pt report her PCP changed her Depakote dosage on this week . Since that, she felt more dizziness. Pt's family report pt took Depakote for her psychological disorder such as bipolar and mood disorder. Family reports decreased energy, appetite and intermittent confusion for the past 1-2 weeks. pt denies headache, vision change, chest pain, fever, chill, shortness of breath, abdominal pain, nausea, vomiting, diarrhea, dysuria, hematuria. Pt also denies focal neurological deficiency. CT of head is unremarkable. UA analysis is pending now. Lab test reveals significant low sodium at 121, slight elevated liver enzyme AST and ALT, and slight elevated WBC 11.9. pt is admitted in observation unit for further evaluation and treatment. - HOSPITAL COURSE Hospital Course: pt was admitted for dizziness and confused. after treatment, pt is alert and oriented plus 3, pt has clear mind. pt was found to have hyponatremia Na at 121, Depakote was above therapeutic arrange, mild elevated liver enzyme, later pt was found elevated ammonia level. pt was treated with IVF of NS for her hypovolemia and hyponatremia. Depakote is reduce to dosage 500 mg bid from previous home meds at 1500mg daily. Lipid panel test is normal, because of mild elevated liver enzyme, pt's home Lovastatin dosage is reduced to 20 mg daily from previous 40mg daily. pt was treated with lactulose, her ammonia level is down to normal as well. US of liver was unremarkable. Hepatitis test is still in the pending now but it seems pt has no acute hepatitis. The detail hospital course is as the below. (1) Altered mental status resolved. pt is alert and oriented plus 3 today. etiology to cause AMS could be combination of ptis intake of benzodiazepines and cannabinoid, over dosage of depakote, elevated ammonia level, and hyponatremia (2) Hyponatremia great improved. Na 131 today, pt's HCTZ is hold (3) HTN (hypertension) stable (4) HLD (hyperlipidemia) stable (5) Bipolar 1 disorder stable (6) Hypothyroidism stable (7) GERD (gastroesophageal reflux disease) stable (8) Elevated liver enzymes improved. reduced Lovastatin and Depakote dosage. US of liver is unremarkable. - ALLERGIES Allergies/Adverse Reactions: Allergies Allergy/AdvReac Type Severity Reaction Status Date / Time No Known Drug Allergies Allergy Verified 05/21/19 11:52 - MEDICATIONS Home Medications: Ambulatory Orders Medication Instructions Recorded Confirmed Amlodipine Besylate [Norvasc] 2.5 mg PO QPM 05/21/19 05/21/19 Divalproex Sodium [Divalproex 500 mg PO DAILY 05/21/19 05/21/19 Sodium ER] Esomeprazole Magnesium [Nexium 20 mg PO QDAC 05/21/19 05/21/19 24Hr] Levothyroxine [Synthroid] 112 mcg PO QDAC 05/21/19 05/21/19 Multivitamin [Theragran] 1 tab PO QPM 05/21/19 05/21/19 Naproxen Sodium 220 mg PO QPM PRN 05/21/19 05/21/19 Potassium Chloride 20 meq PO QPM 05/21/19 05/21/19 diphenhydrAMINE HCl 25 mg PO BID PRN 05/21/19 05/21/19 [Diphenhydramine HCl] Divalproex Sodium [Divalproex 500 mg PO QPM #10 tab.er.24h 05/22/19 Sodium ER] Lisinopril 20 mg PO DAILY #10 tablet 05/22/19 Lovastatin 20 mg PO QPM #10 tablet 05/22/19 - PHYSICAL EXAM AT DISCHARGE General Appearance: positive: No acute distress, Alert. negative: Lethargic Eyes Bilateral: positive: Normal inspection, PERRL, No lid inflammation, Conjunctivae nml ENT: positive: ENT inspection nml, Pharynx nml, No signs of dehydration. negative: Purulent nasal drainage, Pharyngeal erythema, Oral lesions Neck: positive: Nml inspection, Thyroid nml, No JVD, Trachea midline. negative: Thyromegaly, Lymphadenopathy (R), Lymphadenopathy (L), Stiff neck, Swelling/bruising, Tracheal deviation Respiratory: positive: Chest non-tender, No respiratory distress, Breath sounds nml. negative: Wheezes, Rales, Rhonchi Cardiovascular: positive: Regular rate & rhythm, No murmur, No gallop. negative: Irregularly irregular, Extrasystoles, Tachycardia, Bradycardia, JVD present, Systolic murmur, Diastolic murmur Peripheral Pulses: positive: 2+ Abdomen: positive: Non-tender, No organomegaly, Nml bowel sounds, No distention. negative: Tenderness, Guarding, Rebound Back: positive: Nml inspection. negative: CVA tenderness (R), CVA tenderness (L) Skin: positive: Color nml, No rash, Warm, Dry. negative: Cyanosis, Diaphoresis, Pallor Extremities: positive: Non-tender, Full ROM, Nml appearance. negative: Calf tenderness, Joint swelling, Patrick's sign/cords Neurologic/Psychiatric: positive: Oriented x3, Motor nml, Sensation nml, Mo od/affect nml. negative: Weakness, Sensory loss, Facial droop, Slurred/abnml speech, Depressed mood/affect - LABS Result Diagrams: 05/22/19 04:41 05/22/19 14:07 - SEPSIS Current Stage of Sepsis: Ruled out - FOLLOW UP Follow Up: After treatment in the hospital, you have clear mind, you are alert and oriented plus three. your HCTZ is hold for hyponatremia. Depakote dosage is reduced to bid of 500mg because of over therapeutic range, possible contribute to your dizziness and mild elevated liver enzyme. Your Lovastatin dosage is reduced as well, because your lipid panel test is normal, but you have mild elevated liver enzyme, your US of your liver is unremarkable. you may followup your PCP in one week, followup Dr. John Flor office on tomorrow. Should your symptoms return or worsen, you may present ER or call 911 for help - TIME SPENT Time Spent in Discharge (Minutes): 60
[2019-05-22 16:27] VITALS: BP 106/55
[2019-05-22] MEDS ORDERED: amLODIPine 5 MG TABLET PO SCH (21:00)
[2019-05-23 11:16] LABS: HEPATITIS A IGM NON-REACTIVE (NON-REACTIVE); HEPATITIS B SURFACE ANTIGEN NON-REACTIVE (NON-REACTIVE); HEPATITIS C ANTIBODY NON-REACTIVE (NON-REACTIVE)
== END 2019-05-22 16:15 | disposition home or self-care (01) ==
LOC: ED 11:39 → MS2 14:26
PROVIDERS: ADMIT Nurse Practitioner Gerontology; ATTEND Nurse Practitioner Gerontology
DX: R41.82 Altered mental status, unspecified (principal); E87.1 Hypo-osmolality and hyponatremia; I10 Essential (primary) hypertension; E78.5 Hyperlipidemia, unspecified; F31.9 Bipolar disorder, unspecified; E03.9 Hypothyroidism, unspecified; K21.9 Gastro-esophageal reflux disease without esophagitis; R74.0 Nonspecific elevation of levels of transaminase and lactic acid dehydrogenase [LDH]; Z66 Do not resuscitate; D72.829 Elevated white blood cell count, unspecified
CPT/HCPCS: 36415; 70450; 76705; 80048; 80053; 80061; 80074; 80164; 81001; 82140; 83690; 83735; 84295; 84484; 85025; 96360; 96361; 96372; 99285; A9270; G0378; J1650; 80175; 80306; 80307; 80320; 80329; 81003; 83721; 84443; 87086

== ENCOUNTER 2019-06-07 13:19 | Outpatient (CLI) | payer MEDICARE ==
[2019-06-07 13:50] LABS: ALBUMIN 3.9 g/dL (3.2-5.5); ALKALINE PHOSPHATASE 43 IU/L (42-121); ALT ALANINE AMINOTRANSFERASE 112 IU/L (10-60); AST ASPARTATE AMINOTRANSFERASE 99 IU/L (10-42); BILIRUBIN,DIRECT 0.2 mg/dL (0.1-0.5); TOTAL PROTEIN 6.7 g/dL (6.7-8.2); VALPROIC ACID (DEPAKOTE) 70.1 ug/mL
== END 2019-06-07 13:20 | disposition home or self-care (01) ==
LOC: LAB 13:19
PROVIDERS: ATTEND Psychiatry & Neurology Psychiatry
DX: E87.1 Hypo-osmolality and hyponatremia (principal); T42.6X Poisoning by, adverse effect of and underdosing of other antiepileptic and sedative-hypnotic drugs; F31.63 Bipolar disorder, current episode mixed, severe, without psychotic features
CPT/HCPCS: 36415; 80076; 80164

== ENCOUNTER 2019-07-06 10:27 | Outpatient (CLI) | payer MEDICARE ==
[2019-07-06 11:56] LABS: ALBUMIN 3.9 g/dL (3.2-5.5); ALKALINE PHOSPHATASE 79 IU/L (42-121); ALT ALANINE AMINOTRANSFERASE 127 IU/L (10-60); AST ASPARTATE AMINOTRANSFERASE 98 IU/L (10-42); BILIRUBIN,DIRECT 0.1 mg/dL (0.1-0.5); BILIRUBIN,TOTAL 0.8 mg/dL (0.2-1.0); BUN - BLOOD UREA NITROGEN 22 mg/dL (6-20); CALCIUM 9.1 mg/dL (8.5-10.3); CARBON DIOXIDE - CO2 32 mmol/L (21-32); CHLORIDE 99 mmol/L (101-111); CREATININE 0.8 mg/dL (0.4-1.0); GFR - MDRD 71 (>89); GLUCOSE 81 mg/dL (70-100); SODIUM 139 mmol/L (135-145); TOTAL PROTEIN 7.2 g/dL (6.7-8.2); VALPROIC ACID (DEPAKOTE) 85.2 ug/mL
== END 2019-07-06 10:28 | disposition home or self-care (01) ==
LOC: LAB 10:27
PROVIDERS: ATTEND Psychiatry & Neurology Psychiatry
DX: F31.63 Bipolar disorder, current episode mixed, severe, without psychotic features (principal); E87.1 Hypo-osmolality and hyponatremia
CPT/HCPCS: 36415; 80048; 80076; 80164

== ENCOUNTER 2019-07-08 07:00 | Outpatient (CLI) | payer MEDICARE | END 2019-07-08 23:59 | disposition home or self-care (01) | LOC: LAB.R 07:00 | PROVIDERS: ATTEND Psychiatry & Neurology Neurology | DX: R41.3 Other amnesia (principal); R26.81 Unsteadiness on feet; R25.1 Tremor, unspecified | CPT/HCPCS: 81599; 82175; 82525; 83655; 83825 ==

== ENCOUNTER 2019-08-15 12:27 | Outpatient (CLI) | payer MEDICARE ==
[2019-08-15 13:24] LABS: ALBUMIN 3.6 g/dL (3.2-5.5); ALBUMIN/GLOBULIN RATIO 1.1 (1.0-2.2); ALKALINE PHOSPHATASE 77 IU/L (42-121); ALT ALANINE AMINOTRANSFERASE 39 IU/L (10-60); AST ASPARTATE AMINOTRANSFERASE 44 IU/L (10-42); BILIRUBIN,TOTAL 0.6 mg/dL (0.2-1.0); BUN - BLOOD UREA NITROGEN 22 mg/dL (6-20); CALCIUM 9.1 mg/dL (8.5-10.3); CARBON DIOXIDE - CO2 28 mmol/L (21-32); CHLORIDE 98 mmol/L (101-111); CREATININE 1.4 mg/dL (0.4-1.0); GFR - MDRD 37 (>89); GLUCOSE 92 mg/dL (70-100); SODIUM 135 mmol/L (135-145); TOTAL PROTEIN 6.8 g/dL (6.7-8.2); VALPROIC ACID (DEPAKOTE) 54.4 ug/mL
== END 2019-08-15 12:28 | disposition home or self-care (01) ==
LOC: LAB 12:27
PROVIDERS: ATTEND Psychiatry & Neurology Psychiatry
DX: F31.9 Bipolar disorder, unspecified (principal)
CPT/HCPCS: 36415; 80053; 80164

== ENCOUNTER 2019-08-19 13:07 | Outpatient (CLI) | payer MEDICARE ==
[2019-08-19] MEDS ORDERED: GADOBUTROL 10 MMOL/10 ML VIAL ONE (14:36)
[2019-08-19] MEDS: GADOBUTROL 10 MMOL/10 ML VIAL IVP ONE (15:24)
--- NOTE | 2019-08-19 20:07 | MRI Report ---
Reason: MEMORY LOSS, UNSTEADY GAIT, TREMOR Procedure Date: 08/19/2019 Accession Number: [id number] / [id number] Procedure: MRI - Angio Brain W/O (MRA) CPT Code: Final Report FULL RESULT: EXAMS: MRI BRAIN WITH AND WITHOUT CONTRAST. MRA BRAIN WITHOUT CONTRAST. EXAM DATE: 08/19/2019 03:10 PM. CLINICAL HISTORY: 69-year-old presenting with memory loss, unsteady gait, and tremor. Evaluate for intracranial pathology or vascular pathology. COMPARISON: HEAD W/O 05/21/2019 1:45 PM BRAIN W/O 05/04/2018 2:57 PM. TECHNIQUE: MRI: Multiplanar, multisequence T1-weighted and fluid-sensitive MRI sequences of the brain were performed without contrast. Sequences optimized for routine evaluation. Other: None. Post-processing: None. IV Contrast: 6 mL Gadavist. MRA: Multiplanar, multisequence T1-weighted and fluid-sensitive MRA sequences of the brain were performed. Other: None. Post-processing: Multiplanar 3D MIP reconstructions. IV Contrast: None. FINDINGS: MRI: Brain Volume: Normal for age. Parenchyma/Dura: No acute parenchymal hemorrhage, mass, or midline shift. There is mild bilateral areas of T2/FLAIR signal hyperintensity seen that appears similar to MR brain 05/04/2018. There is old chronic lacunar infarct in the right putamen, stable. There are no areas of restricted diffusion seen to suggest acute infarct. There is no definite areas of abnormal chronic hemosiderin deposition seen. No abnormal postcontrast enhancement. Ventricles/Cisterns: No hydrocephalus. No abnormal extra-axial fluid collection or hemorrhage. Orbits: Symmetric and unremarkable. Sella Turcica: The pituitary gland, cavernous sinuses, suprasellar cistern and optic chiasm are unremarkable. IAC: Symmetric and unremarkable. Vasculature: Normal signal flow void is seen in the major arterial structures at the skull base. Sinuses: No acute appearing sinus disease. Bones: No focal pathologic appearing marrow signal changes. Other: None. MRA: RIGHT Internal Carotid (ICA): No aneurysm, stenosis or anomaly. Middle Cerebral (MCA): No aneurysm, stenosis or anomaly. Anterior Cerebral (CAM): No aneurysm, stenosis or anomaly. Posterior Cerebral (DOOR TO DOOR SALESMAN): No aneurysm, stenosis or anomaly. Posterior Communicating (P-COM): No aneurysm, stenosis or anomaly. Vertebral: No aneurysm, stenosis or anomaly in the visualized upper vertebral artery. LEFT Internal Carotid (ICA): No aneurysm, stenosis or anomaly. Middle Cerebral (MCA): No aneurysm, stenosis or anomaly. Anterior Cerebral (CAM): No aneurysm, stenosis or anomaly. Posterior Cerebral (DOOR TO DOOR SALESMAN): No aneurysm, stenosis or anomaly. Posterior Communicating (P-COM): No aneurysm, stenosis or anomaly. Vertebral: No aneurysm, stenosis or anomaly in the visualized upper vertebral artery. MIDLINE Anterior Communicating (A-COM): No aneurysm, stenosis or anomaly. Basilar artery: No aneurysm, stenosis or anomaly. Other: None. IMPRESSION: MRI HEAD: 1.No definite acute intracranial pathology seen; specifically, no acute infarct, acute intracranial hemorrhage, mass, hydrocephalus, or midline shift. No definite abnormal postcontrast enhancement. 2. There appears to be an old chronic lacunar infarct within the right putamen similar to MR brain 05/04/2018. There is additional mild white matter changes that appear similar to prior study and while nonspecific, most likely represent sequela of chronic small vessel ischemic disease. MRA HEAD: 1.No large vessel occlusion. 2. No definite intracranial aneurysm. No high-grade stenosis. RADIA
--- NOTE | 2019-08-19 20:08 | MRI Report ---
Reason: MEMORY LOSS, UNSTEADY GAIT, TREMOR Procedure Date: 08/19/2019 Accession Number: [id number] / [id number] Procedure: MRI - Brain W/WO CPT Code: Final Report FULL RESULT: EXAMS: MRI BRAIN WITH AND WITHOUT CONTRAST. MRA BRAIN WITHOUT CONTRAST. EXAM DATE: 08/19/2019 03:10 PM. CLINICAL HISTORY: 69-year-old presenting with memory loss, unsteady gait, and tremor. Evaluate for intracranial pathology or vascular pathology. COMPARISON: HEAD W/O 05/21/2019 1:45 PM BRAIN W/O 05/04/2018 2:57 PM. TECHNIQUE: MRI: Multiplanar, multisequence T1-weighted and fluid-sensitive MRI sequences of the brain were performed without contrast. Sequences optimized for routine evaluation. Other: None. Post-processing: None. IV Contrast: 6 mL Gadavist. MRA: Multiplanar, multisequence T1-weighted and fluid-sensitive MRA sequences of the brain were performed. Other: None. Post-processing: Multiplanar 3D MIP reconstructions. IV Contrast: None. FINDINGS: MRI: Brain Volume: Normal for age. Parenchyma/Dura: No acute parenchymal hemorrhage, mass, or midline shift. There is mild bilateral areas of T2/FLAIR signal hyperintensity seen that appears similar to MR brain 05/04/2018. There is old chronic lacunar infarct in the right putamen, stable. There are no areas of restricted diffusion seen to suggest acute infarct. There is no definite areas of abnormal chronic hemosiderin deposition seen. No abnormal postcontrast enhancement. Ventricles/Cisterns: No hydrocephalus. No abnormal extra-axial fluid collection or hemorrhage. Orbits: Symmetric and unremarkable. Sella Turcica: The pituitary gland, cavernous sinuses, suprasellar cistern and optic chiasm are unremarkable. IAC: Symmetric and unremarkable. Vasculature: Normal signal flow void is seen in the major arterial structures at the skull base. Sinuses: No acute appearing sinus disease. Bones: No focal pathologic appearing marrow signal changes. Other: None. MRA: RIGHT Internal Carotid (ICA): No aneurysm, stenosis or anomaly. Middle Cerebral (MCA): No aneurysm, stenosis or anomaly. Anterior Cerebral (CAM): No aneurysm, stenosis or anomaly. Posterior Cerebral ([employer] TECHNICAL MANAGER): No aneurysm, stenosis or anomaly. Posterior Communicating (P-COM): No aneurysm, stenosis or anomaly. Vertebral: No aneurysm, stenosis or anomaly in the visualized upper vertebral artery. LEFT Internal Carotid (ICA): No aneurysm, stenosis or anomaly. Middle Cerebral (MCA): No aneurysm, stenosis or anomaly. Anterior Cerebral (CAM): No aneurysm, stenosis or anomaly. Posterior Cerebral ([employer] TECHNICAL MANAGER): No aneurysm, stenosis or anomaly. Posterior Communicating (P-COM): No aneurysm, stenosis or anomaly. Vertebral: No aneurysm, stenosis or anomaly in the visualized upper vertebral artery. MIDLINE Anterior Communicating (A-COM): No aneurysm, stenosis or anomaly. Basilar artery: No aneurysm, stenosis or anomaly. Other: None. IMPRESSION: MRI HEAD: 1.No definite acute intracranial pathology seen; specifically, no acute infarct, acute intracranial hemorrhage, mass, hydrocephalus, or midline shift. No definite abnormal postcontrast enhancement. 2. There appears to be an old chronic lacunar infarct within the right putamen similar to MR brain 05/04/2018. There is additional mild white matter changes that appear similar to prior study and while nonspecific, most likely represent sequela of chronic small vessel ischemic disease. MRA HEAD: 1.No large vessel occlusion. 2. No definite intracranial aneurysm. No high-grade stenosis. RADIA
== END 2019-08-19 13:08 | disposition home or self-care (01) ==
LOC: DI 13:07
PROVIDERS: ATTEND Psychiatry & Neurology Neurology
DX: R41.3 Other amnesia (principal); R26.81 Unsteadiness on feet; R25.1 Tremor, unspecified; H02.402 Unspecified ptosis of left eyelid
CPT/HCPCS: 70553; A9585; 70544

== ENCOUNTER 2019-08-25 08:00 | Outpatient (CLI) | payer MEDICARE ==
[2019-08-25 12:09] LABS: BASOPHILS % (AUTO) 0.7 %; EOSINOPHILS # (AUTO) 0.2 10^3/uL (0.0-0.7); EOSINOPHILS % (AUTO) 3.9 %; HGB - HEMOGLOBIN 14.4 g/dL (12.0-16.0); LYMPHOCYTES # (AUTO) 1.4 10^3/uL (1.5-3.5); LYMPHOCYTES % (AUTO) 31.4 %; MEAN CORPUSCULAR HEMOGLOBIN 32.8 pg (27.0-31.0); MEAN CORPUSCULAR HGB CONC 35.5 g/dL (32.0-36.0); MEAN CORPUSCULAR VOLUME 92.5 fL (81.0-99.0); MEAN PLATELET VOLUME 8.9 fL (7.9-10.8); MONOCYTES # (AUTO) 0.5 10^3/uL (0.0-1.0); MONOCYTES % (AUTO) 10.3 %; NEUTROPHILS # (AUTO) 2.5 10^3/uL (1.5-6.6); NEUTROPHILS % (AUTO) 53.5 %; PLT - PLATELET COUNT 299 10^3/uL (130-450); RED BLOOD COUNT 4.39 10^6/uL (4.20-5.40); RED CELL DISTRIBUTION WIDTH 12.2 % (12.0-15.0); WHITE BLOOD COUNT 4.6 x10^3/uL (4.8-10.8)
[2019-08-25 12:33] LABS: ALBUMIN 3.6 g/dL (3.2-5.5); ALBUMIN/GLOBULIN RATIO 1.1 (1.0-2.2); ALKALINE PHOSPHATASE 80 IU/L (42-121); ALT ALANINE AMINOTRANSFERASE 38 IU/L (10-60); AST ASPARTATE AMINOTRANSFERASE 44 IU/L (10-42); BILIRUBIN,TOTAL 0.5 mg/dL (0.2-1.0); BUN - BLOOD UREA NITROGEN 16 mg/dL (6-20); CALCIUM 8.9 mg/dL (8.5-10.3); CARBON DIOXIDE - CO2 28 mmol/L (21-32); CHLORIDE 90 mmol/L (101-111); CREATININE 0.9 mg/dL (0.4-1.0); GFR - MDRD 62 (>89); GLUCOSE 84 mg/dL (70-100); SODIUM 129 mmol/L (135-145); TOTAL PROTEIN 6.9 g/dL (6.7-8.2)
[2019-08-25 12:42] LABS: CRP - C-REACTIVE PROTEIN < 1.0 mg/dL (0-1.0)
[2019-08-28 19:06] LABS: ALPHA-TOCOPHEROL 17.1 mg/L; BETA-GAMMA-TOCOPHEROL <1.0 mg/L (<4.4)
[2019-08-29 18:34] LABS: ALBUMIN 3.7 g/dL (3.8-4.8); ALPHA 1 GLOBULIN 0.3 g/dL (0.2-0.3); ALPHA 2 GLOBULIN 0.6 g/dL (0.5-0.9); BETA 1 GLOBULIN 0.5 g/dL (0.4-0.6); BETA 2 GLOBULIN 0.3 g/dL (0.2-0.5); GAMMA GLOBULIN 1.2 g/dL (0.8-1.7)
[2019-08-31 16:21] LABS: COPPER 106 mcg/dL (70-175)
== END 2019-08-25 23:59 | disposition home or self-care (01) ==
LOC: LAB 08:00
PROVIDERS: ATTEND Psychiatry & Neurology Neurology
DX: R41.3 Other amnesia (principal); R26.81 Unsteadiness on feet; R25.1 Tremor, unspecified
CPT/HCPCS: 36415; 80053; 81599; 82390; 82525; 82607; 82746; 84155; 84165; 84425; 84443; 84446; 84630; 85025; 85651; 86140; 86334; 86376; 86780; 86800

== ENCOUNTER 2019-09-13 08:42 | Outpatient (CLI) | payer MEDICARE ==
[2019-09-13 09:14] LABS: ALBUMIN 3.9 g/dL (3.2-5.5); ALBUMIN/GLOBULIN RATIO 1.3 (1.0-2.2); ALKALINE PHOSPHATASE 83 IU/L (42-121); ALT ALANINE AMINOTRANSFERASE 32 IU/L (10-60); AST ASPARTATE AMINOTRANSFERASE 40 IU/L (10-42); BILIRUBIN,TOTAL 1.1 mg/dL (0.2-1.0); BUN - BLOOD UREA NITROGEN 14 mg/dL (6-20); CARBON DIOXIDE - CO2 28 mmol/L (21-32); CHLORIDE 87 mmol/L (101-111); CREATININE 0.9 mg/dL (0.4-1.0); GFR - MDRD 62 (>89); GLUCOSE 82 mg/dL (70-100); SODIUM 125 mmol/L (135-145); TOTAL PROTEIN 6.8 g/dL (6.7-8.2)
== END 2019-09-13 08:43 | disposition home or self-care (01) ==
LOC: LAB 08:42
PROVIDERS: ATTEND Psychiatry & Neurology Psychiatry
DX: F31.63 Bipolar disorder, current episode mixed, severe, without psychotic features (principal); E87.1 Hypo-osmolality and hyponatremia; T42.6X Poisoning by, adverse effect of and underdosing of other antiepileptic and sedative-hypnotic drugs
CPT/HCPCS: 36415; 80053; 80164

== ENCOUNTER 2019-10-11 10:11 | Outpatient (CLI) | payer MEDICARE ==
[2019-10-11 10:48] LABS: ALBUMIN 3.8 g/dL (3.2-5.5); ALBUMIN/GLOBULIN RATIO 1.2 (1.0-2.2); BILIRUBIN,TOTAL 0.8 mg/dL (0.2-1.0); CALCIUM 9.3 mg/dL (8.5-10.3)
[2019-10-11 11:17] LABS: VALPROIC ACID (DEPAKOTE) 101.9 ug/mL
[2019-10-11 11:44] LABS: THYROID STIMULATING HORMONE 1.42 uIU/mL (0.34-5.60)
[2019-10-11 11:46] LABS: FREE T4 (FREE THYROXINE) 1.07 ng/dL (0.58-1.64)
== END 2019-10-11 10:12 | disposition home or self-care (01) ==
LOC: LAB 10:11
PROVIDERS: ATTEND Family Medicine
DX: E78.1 Pure hyperglyceridemia (principal); F31.63 Bipolar disorder, current episode mixed, severe, without psychotic features; I95.2 Hypotension due to drugs; E03.9 Hypothyroidism, unspecified; T42.6X1A Poisoning by other antiepileptic and sedative-hypnotic drugs, accidental (unintentional), initial encounter; R26.81 Unsteadiness on feet
CPT/HCPCS: 36415; 80053; 80164; 84439; 84443; 84481

== ENCOUNTER → 2020-06-25 | Outpatient (CLI) | payer MEDICARE ==
[2020-06-25 12:30] LABS: BASOPHILS # (AUTO) 0.1 10^3/uL (0.0-0.1); EOSINOPHILS # (AUTO) 0.6 10^3/uL (0.0-0.7); EOSINOPHILS % (AUTO) 10.8 %; HGB - HEMOGLOBIN 13.9 g/dL (12.0-16.0); LYMPHOCYTES # (AUTO) 1.7 10^3/uL (1.5-3.5); LYMPHOCYTES % (AUTO) 29.9 %; MEAN CORPUSCULAR HEMOGLOBIN 30.2 pg (27.0-31.0); MEAN CORPUSCULAR HGB CONC 32.2 g/dL (32.0-36.0); MEAN CORPUSCULAR VOLUME 93.7 fL (81.0-99.0); MEAN PLATELET VOLUME 9.8 fL (7.9-10.8); MONOCYTES # (AUTO) 0.4 10^3/uL (0.0-1.0); MONOCYTES % (AUTO) 6.2 %; NEUTROPHILS % (AUTO) 51.9 %; PLT - PLATELET COUNT 313 10^3/uL (130-450); RED BLOOD COUNT 4.61 10^6/uL (4.20-5.40); WHITE BLOOD COUNT 5.8 x10^3/uL (4.8-10.8)
[2020-06-25 12:49] LABS: ALBUMIN/GLOBULIN RATIO 1.3 (1.0-2.2); ALKALINE PHOSPHATASE 50 IU/L (42-121); ALT ALANINE AMINOTRANSFERASE 18 IU/L (10-60); AST ASPARTATE AMINOTRANSFERASE 21 IU/L (10-42); BILIRUBIN,TOTAL 0.6 mg/dL (0.2-1.0); BUN - BLOOD UREA NITROGEN 12 mg/dL (6-20); CALCIUM 9.5 mg/dL (8.5-10.3); CARBON DIOXIDE - CO2 29 mmol/L (21-32); CHLORIDE 104 mmol/L (101-111); CHOL/HDL RATIO 2.6 (<4.4); CHOLESTEROL 183 mg/dL; CREATININE 0.9 mg/dL (0.4-1.0); GLUCOSE 92 mg/dL (70-100); HDL CHOLESTEROL 70 mg/dL; LDL CHOLESTEROL,CALCULATED 96 mg/dL; LDL/HDL RATIO 1.4 (<4.4); SODIUM 139 mmol/L (135-145); TOTAL PROTEIN 7.2 g/dL (6.7-8.2); VLDL CHOLESTEROL 17 mg/dL
[2020-06-25 12:55] LABS: THYROID STIMULATING HORMONE 3.56 uIU/mL (0.34-5.60)
[2020-06-25 12:56] LABS: FREE T3 2.74 pg/mL (2.5-3.9)
[2020-06-25 12:57] LABS: FREE T4 (FREE THYROXINE) 1.1 ng/dL (0.58-1.64)
== END ==
LOC: LAB.WCP 10:01
PROVIDERS: ATTEND Family Medicine
DX: E78.5 Hyperlipidemia, unspecified (principal); I10 Essential (primary) hypertension; H81.09 Meniere's disease, unspecified ear; K21.9 Gastro-esophageal reflux disease without esophagitis; E03.9 Hypothyroidism, unspecified; E87.6 Hypokalemia
CPT/HCPCS: 36415; 80053; 80061; 83721; 83735; 84439; 84443; 84481; 85025

== ENCOUNTER 2021-03-31 07:06 | Outpatient (CLI) | payer MEDICARE ==
[2021-03-31 07:38] LABS: BASOPHILS % (AUTO) 0.8 %; EOSINOPHILS # (AUTO) 0.4 10^3/uL (0.0-0.7); EOSINOPHILS % (AUTO) 9.1 %; HCT - HEMATOCRIT 40.4 % (37.0-47.0); HGB - HEMOGLOBIN 13.2 g/dL (12.0-16.0); LYMPHOCYTES # (AUTO) 1.8 10^3/uL (1.5-3.5); LYMPHOCYTES % (AUTO) 38.1 %; MEAN CORPUSCULAR HEMOGLOBIN 29.2 pg (27.0-31.0); MEAN CORPUSCULAR HGB CONC 32.7 g/dL (32.0-36.0); MEAN CORPUSCULAR VOLUME 89.4 fL (81.0-99.0); MEAN PLATELET VOLUME 9.1 fL (7.9-10.8); MONOCYTES # (AUTO) 0.4 10^3/uL (0.0-1.0); MONOCYTES % (AUTO) 7.8 %; NEUTROPHILS # (AUTO) 2.1 10^3/uL (1.5-6.6); PLT - PLATELET COUNT 299 10^3/uL (130-450); RED BLOOD COUNT 4.52 10^6/uL (4.20-5.40); RED CELL DISTRIBUTION WIDTH 13.5 % (12.0-15.0); WHITE BLOOD COUNT 4.7 x10^3/uL (4.8-10.8)
[2021-03-31 07:56] LABS: ALBUMIN 3.8 g/dL (3.2-5.5); ALBUMIN/GLOBULIN RATIO 1.3 (1.0-2.2); ALKALINE PHOSPHATASE 53 IU/L (42-121); ALT ALANINE AMINOTRANSFERASE 21 IU/L (10-60); AST ASPARTATE AMINOTRANSFERASE 25 IU/L (10-42); BILIRUBIN,TOTAL 0.5 mg/dL (0.2-1.0); BUN - BLOOD UREA NITROGEN 22 mg/dL (6-20); CALCIUM 9.1 mg/dL (8.5-10.3); CARBON DIOXIDE - CO2 26 mmol/L (21-32); CHLORIDE 104 mmol/L (101-111); CHOL/HDL RATIO 2.2 (<4.4); CHOLESTEROL 170 mg/dL; CREATININE 0.8 mg/dL (0.4-1.0); GFR - MDRD 71 (>89); GLUCOSE 81 mg/dL (70-100); HDL CHOLESTEROL 76 mg/dL; POTASSIUM 3.9 mmol/L (3.5-5.0); SODIUM 138 mmol/L (135-145); TOTAL PROTEIN 6.8 g/dL (6.7-8.2); TRIGLYCERIDES 35 mg/dL; VALPROIC ACID (DEPAKOTE) 85.6 ug/mL
[2021-03-31 08:09] LABS: THYROID STIMULATING HORMONE 1.81 uIU/mL (0.34-5.60)
== END 2021-03-31 07:07 | disposition home or self-care (01) ==
LOC: LAB 07:06
PROVIDERS: ATTEND Family Medicine
DX: I10 Essential (primary) hypertension (principal); E87.6 Hypokalemia; F31.9 Bipolar disorder, unspecified; E03.9 Hypothyroidism, unspecified; K21.9 Gastro-esophageal reflux disease without esophagitis; E78.5 Hyperlipidemia, unspecified
CPT/HCPCS: 36415; 80053; 80061; 80164; 83721; 84443; 85025

== ENCOUNTER 2021-07-02 14:21 | Outpatient (CLI) | payer MEDICARE ==
--- NOTE | 2021-07-03 10:05 | Mammography Report ---
BILATERAL DIGITAL SCREENING MAMMOGRAM 3D/2D WITH AUGMENTATION: 07/02/2021 CLINICAL: Routine screening. Comparison is made to exam dated: 11/20/2015 mammogram - [facility]. There are sca ttered fibroglandular elements in both breasts. Bilateral breast implants are stable. There are benign calcifications in both breasts. There also a re benign vascular calcifications in both breasts. No significant masses, calcifications, or other findings are seen in either breast. There has been no significant interval change. IMPRESSION: BENIGN There is no mammographic evidence of malignancy. A 1 year screening mammogram is recommended. This exam was interpreted at Station ID: [id number]. NOTE: For mammograms, a report in lay terms will be sent to the patient. Approximately 15% of breast malignancies will not be visualized mammographically. In the management of a palpable breast mass, a negative mammogram must not discourage biopsy of a clinically suspicious lesion. Electronically Signed By: Sanjay Norman M.D. slc/penrad:07/02/2021 16:21:00 ACR BI-RADS Category 2: Benign Finding(s) 3342F PARENCHYMAL PATTERN: (A) - The breast(s) demonstrate(s) scattered fibroglandular densities. BI-RADS CATEGORY: (2) - 2 RECOMMENDATION: (ANNUAL) - Recommend routine annual screening mammography. [id number] 1 year screening LATERALITY: (B)
== END 2021-07-02 14:22 | disposition home or self-care (01) ==
LOC: DI 14:21
PROVIDERS: ATTEND Family Medicine
DX: Z12.31 Encounter for screening mammogram for malignant neoplasm of breast (principal)

== ENCOUNTER 2022-05-27 13:14 | Emergency (ER) | payer MEDICARE ==
--- NOTE | 2022-05-27 14:23 | ED Physician Documentation ---
PD HPI HEAD INJURY - Stated complaint Stated Complaint: FALL/HEAD INJ - Chief complaint Chief Complaint: Trauma Hd/Nk - History obtained from History obtained from: Patient, Family - History of Present Illness Mechanism of head injury: Fell Where head injury occurred: Street Pain level max: 2 Pain level now: 1 Location of injury: Right, Front Quality of pain: Aching, Dull Associated symptoms: No: LOC, AMS, Amnesia, Nausea / vomiting, Neck pain, Pares thesias, Seizures, Ear drainage Symptoms improve with: Rest Symptoms worsen with: Palpation, Movement Contributing factors: No: Anticoagulated, Intoxicated - Additional information Additional information: Patient is a 72-year-old female who presents to the emergency department after a trip and fall today. She was walking on the sidewalk with her cane when she tripped and fell. Sustained a laceration above the right eye. This was repaired at the walk-in clinic. Sent here for head CT. She is not on blood thinners. No loss of consciousness. No altered mental status. No vomiting. No neck pain, paresthesias nothing makes it better or worse. Tetanus shot was given at the walk-in clinic. 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 - Present Medications Home Medications: Ambulatory Orders Medication Instructions Recorded Confirmed Amlodipine Besylate [Norvasc] 2.5 mg PO QPM 05/21/19 05/21/19 Divalproex Sodium [Divalproex 500 mg PO DAILY 05/21/19 05/21/19 Sodium ER] Esomeprazole Magnesium [Nexium 20 mg PO QDAC 05/21/19 05/21/19 24Hr] Levothyroxine [Synthroid] 112 mcg PO QDAC 05/21/19 05/21/19 Multivitamin [Theragran] 1 tab PO QPM 05/21/19 05/21/19 Naproxen Sodium 220 mg PO QPM PRN 05/21/19 05/21/19 Potassium Chloride 20 meq PO QPM 05/21/19 05/21/19 diphenhydrAMINE HCl 25 mg PO BID PRN 05/21/19 05/21/19 [Diphenhydramine HCl] Divalproex Sodium [Divalproex 500 mg PO QPM #10 tab.er.24h 05/22/19 Sodium ER] Lovastatin 20 mg PO QPM #10 tablet 05/22/19 lisinopriL [Lisinopril] 20 mg PO DAILY #10 tablet 05/22/19 cephALEXin [Keflex] 500 mg PO Q6H #28 cap 05/27/22 - Allergies Allergies/Adverse Reactions: Allergies Allergy/AdvReac Type Severity Reaction Status Date / Time No Known Drug Allergies Allergy Verified 05/27/22 13:24 - Social History Smoking Status: Former smoker Does the pt have substance abuse?: No - POLST POLST Status: DNR PD ED PE NORMAL - Vitals Vital signs reviewed: Yes - General General: Alert and oriented X 3, No acute distress - HEENT HEENT: PERRL, Moist mucous membranes, Other (Laceration above the right eyebrow. Has been previously repaired. There is a large hematoma near this area as well. No palpable skull fractures. No facial bone tenderness. Normal bite.) - Neck Neck: Supple, no meningeal sign, No bony TTP, Other (FROM without pain) - Cardiac Cardiac: RRR, Strong equal pulses - Respiratory Respiratory: No respiratory distress, Clear bilaterally - Back Back: No spinal TTP - Derm Derm: Warm and dry - Extremities Extremities: Normal ROM s pain - Neuro Neuro: Alert and oriented X 3, pain management specialist 2-12 intact, No motor deficit, No sensory deficit, Normal speech Eye Opening: Spontaneous Motor: Obeys Commands Verbal: Oriented GCS Score: 15 - Psych Psych: Normal mood, Normal affect Results - Vitals Vitals: Vital Signs - 24 hr 05/27/22 05/27/22 13:17 16:45 Temperature 36.2 C L Heart Rate 87 88 Respiratory 16 18 Rate Blood Pressure 161/91 H 136/98 H O2 Saturation 100 98 Oxygen O2 Source Room air - Rads (name of study) head CT Radiology: Final report received, EMP read contemporaneously, See rad report maxillofacial CT Radiology: Final report received, EMP read contemporaneously, See rad report PD MEDICAL DECISION MAKING - ED course Complexity details: reviewed results, re-evaluated patient, considered differential, d/w patient, d/w family, d/w case consultant ED course: KeyNo acute intracranial abnormalities on head CT. No intracranial hemorrhage. The patient appears to have a right inferior orbital wall fracture on head CT, maxillofacial CT confirms this blowout fracture. There is fat herniation. There is no clinical muscle entrapment. Extraocular movements are normal. Discussed the case with Dr. Ralph, Oral maxillofacial surgery who will see the patient in the office. The patient will be started on Keflex. She was given sinus fracture precautions. Patient counseled regarding signs and symptoms for which I believe and urgent re-evaluation would be necessary. Patient with good understanding of and agreement to plan and is comfortable going home at this time This document was made in part using voice recognition software. While efforts are made to proofread this document, sound alike and grammatical errors may occur. Departure - Departure Disposition: 01 Home, Self Care Clinical Impression: Facial hematoma Qualifiers: Encounter type: initial encounter Qualified Code(s): S00.83XA - Contusion of other part of head, initial encounter Facial laceration Qualifiers: Encounter type: initial encounter Qualified Code(s): S01.81XA - Laceration without foreign body of other part of head, initial encounter Closed head injury Qualifiers: Encounter type: initial encounter Qualified Code(s): S09.90XA - Unspecified injury of head, initial encounter Fracture of inferior orbital wall Qualifiers: Encounter type: initial encounter Fracture type: closed Laterality: right Qualified Code(s): S02.31XA - Fracture of orbital floor, right side, initial encounter for closed fracture Condition: Good Instructions: ED Fx Face Follow-Up: Scottie Pagan MD [Primary Care Provider] - PEPPER RALPH [Physician No Access] - Pepper Ralph DDS [Provider Admit Priv/Credential] - Prescriptions: cephALEXin [Keflex] 500 mg PO Q6H #28 cap Comments: We will place you on antibiotics. Please do not blow your nose. This can cause air to be forced into the orbital space from the fracture. You will need to follow-up with an oral maxillofacial surgeon. I have given you the number to Dr. Pepper Darius office. Please call for an appointment. Follow-up as directed by the walk-in clinic for suture removal. It is also recommended that you talk to your doctor about physical therapy to help with your balance and strength. This will help to prevent further falls. Your prescription was sent to [facility] in [place]. Discharge Date/Time: 05/27/22 16:58
--- NOTE | 2022-05-27 14:45 | CT Report ---
PROCEDURE: CT brain without contrast INDICATIONS: fall, head injury TECHNIQUE: Noncontrast 5 mm thick angled axial sections acquired from the foramen magnum to the vertex. For rad iation dose reduction, the following was used: automated exposure control, adjustment of mA and/or k V according to patient size. COMPARISON: None. FINDINGS: Image quality: Excellent. CSF spaces: Basal cisterns are patent. No extra-axial fluid collections. Ventricles are normal in size and shape. Brain: No midline shift. No intracranial masses or hemorrhage. Huerta-white matter interface is norm al. Moderate atrophy and multifocal white matter chronic ischemic change noted. Atherosclerotic vasc ular calcification noted in the cavernous segments of both internal carotid arteries as well as the i ntradural vertebral arteries. Skull and face: Calvarium and visualized facial bones are intact, without suspicious lesions. Prob able right orbital floor fracture with air-fluid level in the right maxillary sinus Sinuses: Visualized sinuses and mastoids are clear. IMPRESSION: Probable nondisplaced right orbital floor fracture with associated right maxillary intrasinus hemorrh age can be further evaluated with dedicated maxillofacial CT Atrophy and chronic ischemic change without intracranial hemorrhage or mass effect Reviewed by: Drew Jackson MD on 05/27/2022 1:44 PM AKTRISTEN Approved by: Drew Jackson MD on 05/27/2022 1:44 PM AKDT Station ID: [id number]
--- NOTE | 2022-05-27 15:51 | CT Report ---
PROCEDURE: MAXILLOFACIAL WO INDICATIONS: possible fracture on head CT TECHNIQUE: Noncontrast 1.5 mm thick axial images acquired from the mandible through the frontal sinuses, with co osman and sagittal reformatting. For radiation dose reduction, the following was used: automated ex posure control, adjustment of mA and/or kV according to patient size. COMPARISON: Correlation is made with the accompanying head CT, 05/27/2022. FINDINGS: Image quality: Excellent. Bones and teeth: A right orbital blowout fracture is confirmed involving the inferior wall of [facility]. There is herniated fat seen, as on series 6 image 40. There is downward displacement of th e right inferior rectus muscle. No additional orbital wall fracture is seen. No additional sinus wall fracture is detected. Nasal bones and septum are intact. Mild chronic leftward nasal septal deviation can be seen. Visualiz ed portions of the mandible demonstrate no fractures or subluxation. Zygomatic arches are intact. P terygoid plates are intact. Visualized portions of the skull base and auditory canals are intact. Sinuses: There is layering blood seen within the right maxillary sinus, as on series 4 image 84. The paranasal sinuses are otherwise unremarkable. Mastoid air cells are aerated. Soft tissues: No edema, masses, or fluid collections. No enlarged lymph nodes. No soft tissue lace rations or debris. Vascular: Visualized vascular structures appear normal in the absence of contrast. Bony vascular fo ramina and canals are intact. IMPRESSION: Right inferior orbital wall blowout fracture. Associated blood can be seen layering within the right maxillary sinus. Reviewed by: Piotr Lincoln MD on 05/27/2022 2:50 PM ISABELA Approved by: Piotr Lincoln MD on 05/27/2022 2:50 PM ISABELA Station ID: [id number]
[2022-05-27] MEDS ORDERED: cephALEXin 250 MG CAPSULE PO STA (16:27)
[2022-05-27 16:46] VITALS: BP 136/98
== END 2022-05-27 16:58 | disposition home or self-care (01) ==
LOC: ED 13:14
DX: S00.83XA Contusion of other part of head, initial encounter (principal); W01.0XXA Fall on same level from slipping, tripping and stumbling without subsequent striking against object, initial encounter; I10 Essential (primary) hypertension
CPT/HCPCS: 70450; 70486; 99282; 99284; A9270

== ENCOUNTER 2022-06-30 11:03 | Outpatient (CLI) | payer MEDICARE ==
[2022-06-30 11:23] LABS: BASOPHILS % (AUTO) 0.6 %; EOSINOPHILS # (AUTO) 0.2 10^3/uL (0.0-0.7); EOSINOPHILS % (AUTO) 3.4 %; HCT - HEMATOCRIT 42.6 % (37.0-47.0); HGB - HEMOGLOBIN 14.2 g/dL (12.0-16.0); LYMPHOCYTES # (AUTO) 1.7 10^3/uL (1.5-3.5); LYMPHOCYTES % (AUTO) 26.8 %; MEAN CORPUSCULAR HEMOGLOBIN 30.3 pg (27.0-31.0); MEAN CORPUSCULAR HGB CONC 33.3 g/dL (32.0-36.0); MEAN CORPUSCULAR VOLUME 90.8 fL (81.0-99.0); MEAN PLATELET VOLUME 8.8 fL (7.9-10.8); MONOCYTES # (AUTO) 0.5 10^3/uL (0.0-1.0); MONOCYTES % (AUTO) 8.4 %; NEUTROPHILS # (AUTO) 3.9 10^3/uL (1.5-6.6); NEUTROPHILS % (AUTO) 60.6 %; PLT - PLATELET COUNT 318 10^3/uL (130-450); RED BLOOD COUNT 4.69 10^6/uL (4.20-5.40); WHITE BLOOD COUNT 6.5 x10^3/uL (4.8-10.8)
[2022-06-30 11:37] LABS: ALBUMIN 4.1 g/dL (3.2-5.5); ALBUMIN/GLOBULIN RATIO 1.3 (1.0-2.2); ALKALINE PHOSPHATASE 41 IU/L (42-121); ALT ALANINE AMINOTRANSFERASE 15 IU/L (10-60); AST ASPARTATE AMINOTRANSFERASE 21 IU/L (10-42); BILIRUBIN,TOTAL 0.8 mg/dL (0.2-1.0); BUN - BLOOD UREA NITROGEN 19 mg/dL (6-20); CALCIUM 9.4 mg/dL (8.5-10.3); CARBON DIOXIDE - CO2 27 mmol/L (21-32); CHLORIDE 97 mmol/L (101-111); CHOL/HDL RATIO 2.7 (<4.4); CHOLESTEROL 194 mg/dL; CREATININE 0.7 mg/dL (0.4-1.0); GFR - MDRD 82 (>89); GLUCOSE 84 mg/dL (70-100); HDL CHOLESTEROL 72 mg/dL; LDL CHOLESTEROL,CALCULATED 110 mg/dL; LDL/HDL RATIO 1.5 (<4.4); POTASSIUM 3.7 mmol/L (3.5-5.0); SODIUM 135 mmol/L (135-145); TOTAL PROTEIN 7.3 g/dL (6.7-8.2); TRIGLYCERIDES 61 mg/dL; VLDL CHOLESTEROL 12 mg/dL
[2022-06-30 11:48] LABS: THYROID STIMULATING HORMONE 1.15 uIU/mL (0.34-5.60)
[2022-06-30 11:50] LABS: FREE T3 2.5 pg/mL (2.5-3.9); FREE T4 (FREE THYROXINE) 1.43 ng/dL (0.58-1.64)
== END 2022-06-30 11:04 | disposition home or self-care (01) ==
LOC: LAB 11:03
PROVIDERS: ATTEND Family Medicine
DX: I10 Essential (primary) hypertension (principal); E87.6 Hypokalemia; F31.9 Bipolar disorder, unspecified; E78.5 Hyperlipidemia, unspecified; K21.9 Gastro-esophageal reflux disease without esophagitis; E03.9 Hypothyroidism, unspecified
CPT/HCPCS: 36415; 80053; 80061; 83721; 84439; 84443; 84481; 85025

== ENCOUNTER 2023-07-19 08:53 | Outpatient (CLI) | payer MEDICARE ==
[2023-07-19 09:19] LABS: BASOPHILS # (AUTO) 0.1 10^3/uL (0.0-0.1); BASOPHILS % (AUTO) 1.2 %; EOSINOPHILS # (AUTO) 0.3 10^3/uL (0.0-0.7); HCT - HEMATOCRIT 40.5 % (37.0-47.0); HGB - HEMOGLOBIN 13.8 g/dL (12.0-16.0); LYMPHOCYTES % (AUTO) 34.2 %; MEAN CORPUSCULAR HEMOGLOBIN 30.2 pg (27.0-31.0); MEAN CORPUSCULAR HGB CONC 34.1 g/dL (32.0-36.0); MEAN CORPUSCULAR VOLUME 88.6 fL (81.0-99.0); MEAN PLATELET VOLUME 8.9 fL (7.9-10.8); MONOCYTES # (AUTO) 0.4 10^3/uL (0.0-1.0); NEUTROPHILS # (AUTO) 3.1 10^3/uL (1.5-6.6); NEUTROPHILS % (AUTO) 52.4 %; PLT - PLATELET COUNT 305 10^3/uL (130-450); RED BLOOD COUNT 4.57 10^6/uL (4.20-5.40); RED CELL DISTRIBUTION WIDTH 13.2 % (12.0-15.0)
[2023-07-19 09:42] LABS: ALBUMIN/GLOBULIN RATIO 1.8 (1.0-2.2); ALKALINE PHOSPHATASE 48 IU/L (42-121); ALT ALANINE AMINOTRANSFERASE 15 IU/L (10-60); AST ASPARTATE AMINOTRANSFERASE 18 IU/L (10-42); BILIRUBIN,TOTAL 0.6 mg/dL (0.2-1.0); BUN - BLOOD UREA NITROGEN 15 mg/dL (6-20); CALCIUM 9.6 mg/dL (8.5-10.3); CARBON DIOXIDE - CO2 33 mmol/L (21-32); CHLORIDE 101 mmol/L (101-111); CHOL/HDL RATIO 2.7 (<4.4); CHOLESTEROL 186 mg/dL; CREATININE 0.9 mg/dL (0.6-1.3); GFR - MDRD 61 (>89); GLUCOSE 79 mg/dL (74-104); HDL CHOLESTEROL 69 mg/dL; LDL CHOLESTEROL,CALCULATED 98 mg/dL; LDL/HDL RATIO 1.4 (<4.4); POTASSIUM 3.5 mmol/L (3.5-4.5); SODIUM 139 mmol/L (135-145); TOTAL PROTEIN 6.2 g/dL (6.4-8.9); TRIGLYCERIDES 93 mg/dL (48-352); VLDL CHOLESTEROL 19 mg/dL
[2023-07-19 09:59] LABS: THYROID STIMULATING HORMONE 1.65 uIU/mL (0.34-5.60)
== END 2023-07-19 08:54 | disposition home or self-care (01) ==
LOC: LAB 08:53
PROVIDERS: ATTEND Family Medicine
DX: E87.6 Hypokalemia (principal); R26.81 Unsteadiness on feet; E66.3 Overweight; F31.9 Bipolar disorder, unspecified; E78.5 Hyperlipidemia, unspecified; K21.9 Gastro-esophageal reflux disease without esophagitis; M19.90 Unspecified osteoarthritis, unspecified site; I10 Essential (primary) hypertension; E03.9 Hypothyroidism, unspecified
CPT/HCPCS: 36415; 80053; 80061; 83721; 84439; 84443; 84481; 85025

== ENCOUNTER 2024-02-03 10:03 | Outpatient (CLI) | payer MEDICARE ==
[2024-02-03] MEDS ORDERED: iohexoL-300 100 ML VIAL ONE (10:06)
[2024-02-03 10:22] LABS: CREATININE 0.9 mg/dL (0.6-1.3)
[2024-02-03] MEDS: iohexoL-300 100 ML VIAL IVP ONE (11:35)
--- NOTE | 2024-02-03 11:39 | CT Report ---
PROCEDURE: Chest W INDICATIONS: HORNERS SYN CONTRAST: Omni 300 100ml TECHNIQUE: After the administration of intravenous contrast, a CT scan of the chest was performed. Images were recorded and evaluated at appropriate window settings. Reformats: axial MIP of the chest, coronal and sagittal. For radiation dose reduction, the following was used: automated exposure control, adjustme nt of mA and/or kV according to patient size. COMPARISON: None. FINDINGS: Image quality: Diagnostic. Chest wall and lower neck: Thyroid is hypoattenuating. No breast mass. No axillary or supraclavicular adenopathy by size. Bilateral breast implants. Lungs and pleura: No consolidation. No pleural effusions. No pneumothorax. No suspicious pulmonary n odules which require follow up. Juxtapleural nodules with smooth margins, favoring benign intrapulmo nary lymph nodes. Calcified granuloma in the central left lower lobe. Mediastinum: Heart size is normal. No pericardial effusion. No large vessel abnormality. No mediastin al adenopathy by size criteria. Small hiatal hernia. Bones: No aggressive osseous abnormality. Upper Abdomen: Unremarkable. IMPRESSION: Thyroid is hypoattenuating, indicating dysfunction. Reviewed by: John Alcantara MD on 02/03/2024 11:38 AM PDT Approved by: John Alcantara MD on 02/03/2024 11:38 AM PDT Station ID: [id number]
== END 2024-02-03 10:04 | disposition home or self-care (01) ==
LOC: LAB 10:03
PROVIDERS: ATTEND Family Medicine
DX: G90.2 Horner's syndrome (principal); E07.89 Other specified disorders of thyroid
CPT/HCPCS: 36415; 71260; 82565; Q9967

== ENCOUNTER 2024-04-04 11:59 | Outpatient (CLI) | payer MEDICARE ==
[2024-04-04 12:29] LABS: CREATININE 0.8 mg/dL (0.6-1.3)
[2024-04-04] MEDS: GADOTERATE MEGLUMINE 10 MMOL/20 ML VIAL IVP ONE (15:44)
--- NOTE | 2024-04-04 17:49 | MRI Report ---
PROCEDURE: Brain W/WO INDICATIONS: HORNERS SYN TECHNIQUE: Multiplanar multisequential MR images of the brain were obtained before and after intrave nous contrast administration. COMPARISON: 08/19/2019 FINDINGS: CSF spaces: Basal cisterns are patent. No extra-axial fluid collections. Ventricles are normal in size and shape. Brain: No midline shift. No intracranial bleeds or masses. No abnormal intracranial enhancement. The brainstem appears normal. Diffusion-weighted images demonstrate no acute infarct. Normal intrav ascular flow voids are present. Atrophy and chronic ischemic change. Old lacunar infarct noted in the right lentiform nucleus Skull and face: Calvarial marrow is normal in signal. Orbits appear normal. Sinuses: Sinuses and mastoids appear clear. IMPRESSION: Atrophy, chronic ischemic change and old lacunar infarct. No evidence of acute infarct, hemorrhage or mass lesion Reviewed by: Drew Jackson MD on 04/04/2024 4:48 PM AKDT Approved by: Drew Jackson MD on 04/04/2024 4:48 PM AKDT Station ID: [id number]
--- NOTE | 2024-04-04 19:50 | MRI Report ---
PROCEDURE: Soft Tissue Neck W/WO INDICATIONS: horners Syndrome CONTRAST: clariscan 16.8ml TECHNIQUE: Sagittal/axial/coronal T1 spin echo and STIR. After the administration of contrast, axial/coronal/sa gittal T1 fast spin echo with fat saturation through the neck. COMPARISON: None. FINDINGS: Image quality: Excellent. Lymph nodes: No enlarged nodes are seen throughout the neck. Vessels: Visualized vasculature appears normal, with maximiliano flow voids and enhancement. Neck spaces: The oropharynx, nasopharynx and pharynx are unremarkable, without mucosal lesions seen. Vocal cords, false vocal cords, pyriform sinuses, epiglottis, vallecula, and tongue base all appear normal. Extramucosal spaces of the neck also appear unremarkable. Glands: The parotid and submandibular glands appear normal. The thyroid is normal in size and there are no incidental findings. Miscellaneous: Visualized brain and orbits appear normal. Lung apices appear clear. Superficial so ft tissues appear normal. Visualized sinuses and mastoids appear clear. Bones: Marrow has normal overall signal. Degenerative disc disease and arthropathy in the lower cer vical spine IMPRESSION: Mild degenerative disc disease and arthropathy in the lower cervical spine. Otherwise unremarkable MR I of the neck with without contrast Reviewed by: Drew Jackson MD on 04/04/2024 6:48 PM AKDT Approved by: Drew Jackson MD on 04/04/2024 6:48 PM AKDT Station ID: [id number]
== END 2024-04-04 12:00 | disposition home or self-care (01) ==
LOC: LAB 11:59
PROVIDERS: ATTEND Family Medicine
DX: G90.2 Horner's syndrome (principal); G31.89 Other specified degenerative diseases of nervous system; M47.812 Spondylosis without myelopathy or radiculopathy, cervical region; M50.30 Other cervical disc degeneration, unspecified cervical region
CPT/HCPCS: 36415; 82565